=== PATIENT | female | born 1935 | race Caucasian/White ===

== ENCOUNTER 2023-12-06 21:07 | Emergency (ER) | payer OTHER, MEDICAID, SELFPAY ==
[2023-12-06 21:12] VITALS: BP 129/95
[2023-12-06 21:29] VITALS: BP 138/65
[2023-12-06 21:38] LABS: % Basophils 1.2 % (0-2); % Eosinophils 3.2 % (0-6); % Immature Granulocytes 0.7 % (0-0.5); % Lymphocytes 22.3 % (20.5-51.1); % Monocytes 11.1 % (1.7-9.3); % Neutrophils 61.5 % (42.2-75.2); Absolute Basophils 0.1 10^3/uL (0-0.2); Absolute Eosinophils 0.2 10^3/uL (0-0.7); Absolute Immature Granulocytes 0.1 10^3/uL (0-0.05); Absolute Lymphocytes 1.6 10^3/uL (1.2-3.4); Absolute Monocytes 0.8 10^3/uL (0.1-0.6); Absolute Neutrophils 4.5 10^3/uL (1.4-6.5); Hemoglobin 12.2 g/dL (12.0-16.0); Mean Corpuscular Hgb 29.4 pg (27.0-31.0); Mean Corpuscular Volume 89.2 fL (81.0-99.0); Mean Platelet Volume 8.7 fL (7.4-10.4); Nucleated Red Blood Cells % 0 %; Platelet Count 264 10^3/uL (130-400); Red Blood Cell Count 4.15 10^6/uL (4.20-5.40); Red Cell Dist. Width 13.5 % (11.5-14.5); White Blood Cell Count 7.3 10^3/uL (4.8-10.8)
[2023-12-06 21:52] LABS: ALT (SGPT) < 10 U/L (0-35); AST (SGOT) 15 U/L (14-36); Albumin 2.9 g/dl (3.5-5.0); Alkaline Phosphatase 52 U/L (38-126); Blood Urea Nitrogen 16 mg/dl (7-17); Calcium 7.9 mg/dl (8.4-10.2); Carbon Dioxide 28 mmol/L (22-30); Chloride 106 mmol/L (98-107); Estimated Creatinine Clearance 56 ml/min; Glucose 109 mg/dl (70-99); Potassium 3.4 mmol/L (3.5-5.1); Sodium 138 mmol/L (135-145); Total Bilirubin 0.4 mg/dl (0.2-1.3); Total Protein 5.4 g/dl (6.3-8.2); eGFR > 60.00
[2023-12-06 22:00] VITALS: BP 127/64
[2023-12-06 23:00] VITALS: BP 133/66
--- NOTE | 2023-12-06 23:01 | ED.GENMED ---
History of Present Illness
General
Chief Complaint: Abdominal Pain
Source: patient and ambulance crew
Exam Limitations: dementia
Time Seen by Provider: 12/06/23 21:11
Nursing documentation reviewed up to this point in time: agreed with
Travel History
Have you had any contact with someone who has COVID-19?: Unable to Answer
Do you have any symptoms of coronavirus? Fever > 100 degrees, chills, cough, shortness of breath, sore throat, loss of taste or smell, muscle aches, or headache?: Unable to Answer
History of Present Illness
History of Present Illness:
88-year-old female with a past medical history as documented who presents to the emergency department via EMS from [facility] for evaluation of abdominal pain. Patient is limited as a historian due to her dementia. Per EMS they were
called for abdominal pain that started this evening. Patient says that she has pain 'in my left abdomen.' She cannot really describe the pain. She cannot tell me when it started. She denies feeling nauseated. She denies any chest pain or back
pain. She denies feeling short of breath. I spoke with the nursing staff directly to obtain collateral history: Apparently she started complaining with abdominal pain tonight around 6:30 PM. She has a normal scheduled dose of oxycodone which I
gave her and did not seem to make much of a difference. Whenever trying to do her routine nighttime turn in bed she was having pain. They spoke with the physician on-call who recommended she be sent in for evaluation. They have not noticed any
nausea, vomiting or significant constipation/diarrhea. She has not any fevers recently. Her baseline mental status is oriented x 1-2, dependent for all ADLs and bedbound. She is a prior surgical history of hysterectomy.
Past History
Past History
ED Past Medical History: Asthma, NIDDM, Hypothyroidism and Other (Kidney stones, tachy rhythm)
ED Past Surgical History: Appendectomy, Gynecological (Hysterectomy) and Tonsilectomy
Social History
Tobacco: Non-smoker
Alcohol: None
Drug: None
Personal:
Living: assisted living ([facility])
Employment: Not employed
Family History
Family History: Hypertension and Other (cva)
Review of Systems
Review of Systems
Unable to obtain full review of systems at this time due to: dementia
All Other Systems: Not applicable
Phy Exam
Physical Exam
Physical Exam:
General: Sitting in bed, significant resting kyphosis, oriented x 1; she appears chronically ill but is in no acute distress
Head: Normocephalic, atraumatic
Eyes: Conjunctiva normal, sclera anicteric
Throat: Airway intact, handling secretions
Neck: Trachea midline, supple without meningismus
Lungs: Clear to auscultation bilaterally, no wheezing, rales, rhonchi appreciated
Heart: Regular rate and rhythm, no murmurs, gallops, or rubs
Abd: Soft, non distended, tender to palpation diffusely maximally in the left lower abdomen�no palpable abdominal masses
Skin: no rash, no wounds noted to the sacrum or back
Extremities: Warm and well-perfused
Scores
Heart Failure Risk
Heart Failure Risk Score: Not Applicable
Heart Score for Chest Pain Patients
STEMI patient?: Not applicable
Withdrawal Assessment of Alcohol
Withdrawal Assessment Completed?: Not applicable
Course
Orders/Labs/Results
Orders:
Orders
12/06/23 21:12
CT Abd/pelvis W Iv Cont Urgent
Comment:
Reason For Exam: LLQ abd pain and tenderness
Urinalysis Reflex To Culture Urgent
12/06/23 21:31
Complete Blood Count/With Diff Urgent
Comprehensive Metabolic Panel Urgent
12/07/23 00:39
MetroNIDAZOLE [Flagyl] 500 mg PO NOW STA
12/07/23 00:40
Ciprofloxacin HCl [Cipro] 500 mg PO ONCE ONE
Abnormal Lab Results
12/06/23
21:31
RBC 4.15 L 10^6/uL
(4.20-5.40)
Abs Immat Gran (auto) 0.1 H 10^3/uL
(0-0.05)
Absolute Monos (auto) 0.8 H 10^3/uL
(0.1-0.6)
Immature Gran % 0.7 H %
(0-0.5)
Monocytes % 11.1 H %
(1.7-9.3)
Potassium 3.4 L mmol/L
(3.5-5.1)
Creatinine 0.5 L mg/dL
(0.6-1.0)
Glucose 109 H mg/dl
(70-99)
Calcium 7.9 L mg/dl
(8.4-10.2)
Total Protein 5.4 L g/dl
(6.3-8.2)
Albumin 2.9 L g/dl
(3.5-5.0)
12/06/23 21:31
12/06/23 21:31
Vital Signs
Initial and Last Documented VS:
Initial Vital Signs
Temp Pulse Resp BP Pulse Ox
36.6 C 50 16 129/95 99
12/06/23 21:12 12/06/23 21:12 12/06/23 21:12 12/06/23 21:12 12/06/23 21:12
Last Documented Vital Signs
Temp Pulse Resp BP Pulse Ox
36.6 C 58 16 153/71 99
12/06/23 21:12 12/06/23 23:45 12/06/23 23:45 12/06/23 23:44 12/06/23 23:45
MDM/Problems Addressed
Differential Diagnosis Includes:
Diverticulitis, nephrolithiasis, UTI, bowel obstruction
MDM/Problems Addressed:
88-year-old female presents for evaluation of left-sided abdominal pain. Onset apparently this evening. Vital signs here within normal limits. Exam as above�she does have some tenderness most notably in the left lower quadrant. Plan to place an
IV check labs including a CBC and a CMP, urinalysis. Will check CT of the abdomen pelvis. Monitor closely reassess after the above.
Labs reviewed: CBC shows no leukocytosis or other clinically significant abnormalities. CMP within acceptable range. Awaiting results of CT.
CT abdomen pelvis shows some mild thickening of the proximal sigmoid colon with adjacent diverticulosis�concerning for early diverticulitis. This would fit with patient's clinical exam. On reassessment patient is resting comfortably in bed. She
does not appear to be uncomfortable. Her vital signs have all been stable here throughout her ED visit. Her lab work is reassuring. At this point there is no clear indication�she has early uncomplicated acute diverticulitis on CT with reassuring
vitals and lab work. She lives in a monitored setting where she will be watched closely and administered her medications as scheduled. I think it is reasonable to discharge on oral antibiotics to start. I placed a call to jail staff to
provide update they accepted patient for transfer back.
Chronic conditions affecting care:
Dementia
*Radiology
Radiology exam reviewed: radiology read reviewed
*Pulse Oximetry
Patient hypoxic: no
*Critical Care Note
Total Time (30-74mins, 75-104mins- exclusive of procedures): Not Applicable
Data Reviewed
Source: patient, records, ambulance crew and jail
Patient Management
Social determinants of health affecting care: Living situation
Discussion with other providers: snf staff (Discussed directly with nursing staff)
Escalation/DeEscalation of care consider admission/obs:
Considered admission for treatment but with patient appearing well, reassuring vitals and exam and disposition to a monitored setting where she will be administered medication by nursing ultimately decided for trial of oral antibiotics as an
outpatient
ED Attending Note
-
Portions of this chart may have been created with voice recognition software.� Occasional wrong word or��sound alike� substitutions may have occurred due to the inherent limitations of voice recognition software.
Discharge Plan
Departure
Patient Disposition: Home (Routine Discharge)
Date of Disposition: 12/07/23
Time of Disposition: 00:45
Patient with high blood pressure during this ER visit?: Yes
Discharge Problem:
Acute diverticulitis
Instructions: Diverticulitis (DC)
Prescriptions:
New
metronidazole 500 mg tablet
500 mg PO TID Qty: 21 0RF
ciprofloxacin HCl 500 mg tablet
500 mg PO BID Qty: 14 0RF
No Action
metoprolol succinate 25 mg Tablet Extended Release 24 Hr
25 mg PO DAILY
levothyroxine 112 mcg Tablet
112 mcg PO DAILY
latanoprost 0.005 % Drops
1 drp BOTH EYES HS
simethicone 80 mg Tablet,Chewable
80 mg PO BID
acetaminophen [Tylenol] 325 mg Tablet
650 mg PO Q6H PRN (Reason: mild pain/temp>100F)
buspirone 5 mg tablet
5 mg PO BID
sennosides [Senokot] 8.6 mg Tablet
8.6 mg PO HS
polyethylene glycol 3350 [Miralax] 17 gram Powder In Packet
17 g PO DAILY
guaifenesin 100 mg/5 mL Liquid
200 mg PO Q4H PRN (Reason: cough)
magnesium hydroxide [Milk of Magnesia] 400 mg/5 mL Suspension
30 ml PO HS PRN (Reason: if no bm x 2 days)
bisacodyl [Dulcolax (bisacodyl)] 10 mg Suppository
10 mg [place] DAILY PRN (Reason: if no bm x 3 days)
Fleet Enema 19-7 gram/118 mL Enema
118 ml CA DAILY PRN (Reason: if no bm x 4 days)
escitalopram oxalate 20 mg tablet
20 mg PO DAILY
naloxone [Narcan] 4 mg/actuation [place],Non-Aerosol
4 mg INTRANASAL Q3M PRN (Reason: opioid overdose)
ipratropium-albuterol 0.5 mg-3 mg(2.5 mg base)/3 mL Solution For Nebulization
3 ml INHALATION R Q6 PRN (Reason: sob/wheezing)
oxycodone 5 mg tablet
2.5 mg PO Q8H PRN (Reason: moderate pain)
Referrals:
Rory Garza MD [Family Provider] - Follow up in 2-3 days
Activity Restrictions/Additional Instructions:
Thank you for visiting the Emergency Department at [facility].
1. Please schedule a follow up appointment as directed. Call first thing tomorrow morning to make an appointment.
2. If indicated, please take your medications as instructed and indicated on discharge paperwork.
3. If any of your symptoms do not improve, or persist, or become more severe within 6-12 hours, please return to the emergency department for further care.
4. Please return to the emergency department if you develop a headache, neck pain/stiffness, fever greater than 100.4F, chest pain, shortness of breath, persistent nausea, vomiting, slurred speech, difficulty walking, numbness/tingling, weakness,
signs of infection or any other symptoms that are worrisome to you.
Please call [phone] if you have any questions.
Interventions
Interventions:
*Risk Screen - Suicide Last Done: 12/06/23 21:12
*General Assessment Last Done: 12/06/23 21:12
*Neglect/Abuse Screening Last Done: 12/06/23 21:12
*ED COVID-19 Vaccine History Last Done: 12/06/23 21:24
YA-Ngibma-Btnyeaudkw Assessment Last Done: 12/06/23 21:24
[2023-12-06 23:44] VITALS: BP 153/71
[2023-12-07] VITALS: BP 126/62
[2023-12-07] MEDS: CIPRO 500 MG PO (01:15)
[2023-12-07] MEDS: FLAGYL 500 MG PO (01:16)
== END 2023-12-07 01:53 | disposition home or self-care (01) ==
LOC: EMR 21:07
PROVIDERS: EMERGENCY PHYSICIAN Emergency Medicine; FAMILY PHYSICIAN Family Medicine
DX: K57.92 Diverticulitis of intestine, part unspecified, without perforation or abscess without bleeding (principal); J45.909 Unspecified asthma, uncomplicated; E11.9 Type 2 diabetes mellitus without complications; E03.9 Hypothyroidism, unspecified; F03.90 Unspecified dementia, unspecified severity, without behavioral disturbance, psychotic disturbance, mood disturbance, and anxiety; Z82.3 Family history of stroke; Z82.49 Family history of ischemic heart disease and other diseases of the circulatory system; Z87.442 Personal history of urinary calculi; Z90.49 Acquired absence of other specified parts of digestive tract; Z90.710 Acquired absence of both cervix and uterus
CPT/HCPCS: 99284; 74177; 80053; 85025; Q9967

== ENCOUNTER → 2024-02-02 10:38 | Outpatient (REF) | payer MEDICAID, SELFPAY ==
[2024-02-02 11:04] LABS: Hematocrit 38.5 % (37.0-47.0); Hemoglobin 12.1 g/dL (12.0-16.0); Mean Corp Hgb Conc. 31.4 g/dL (33.0-37.0); Mean Corpuscular Hgb 29.4 pg (27.0-31.0); Mean Corpuscular Volume 93.4 fL (81.0-99.0); Platelet Count 258 10^3/uL (130-400); Red Blood Cell Count 4.12 10^6/uL (4.20-5.40); Red Cell Dist. Width 13.5 % (11.5-14.5); White Blood Cell Count 9.4 10^3/uL (4.8-10.8)
[2024-02-02 11:44] LABS: Blood Urea Nitrogen 20 mg/dl (7-17); Calcium 9.4 mg/dl (8.4-10.2); Carbon Dioxide 28 mmol/L (22-30); Chloride 103 mmol/L (98-107); Glucose 88 mg/dl (70-99); Potassium 4.4 mmol/L (3.5-5.1); Sodium 136 mmol/L (135-145); eGFR > 60.00
== END ==
LOC: OLABWHC 10:38
PROVIDERS: ATTENDING PHYSICIAN Family Medicine
DX: I10 Essential (primary) hypertension (principal)
CPT/HCPCS: 80048; 85027

== ENCOUNTER 2024-05-03 18:17 | Emergency (ER) | payer OTHER, SELFPAY ==
[2024-05-03 18:42] VITALS: BP 125/73; BMI 30.6
--- NOTE | 2024-05-03 19:06 | ED.GENMED ---
History of Present Illness
General
Chief Complaint: Weakness
Source: jail
Exam Limitations: dementia
Time Seen by Provider: 05/03/24 18:45
History of Present Illness
History of Present Illness:
This is a 88 year old female that comes in by ambulance with c/o SOB. Called and spoke with Kiki at [facility]. States that the patient was calling for help and was c/o SOB. States that her pulse ox was 89-90% and then she came up to 95%.
States that she was lethargic and kept closing her eyes/ States that she had a hard time holding her head up. She just kept saying that she didn't feel well. States that this started last night but she seemed to have bounced back in the morning.
States that she was coughing slightly and did bring up some mucous. Denies any fever, chills, chest pain, abd pain, nausea, vomiting, diarrhea, headache, dizziness. Patient is incont of urine.
Past History
Past History
ED Past Medical History: Arrthythmia (SVT, ), Asthma, NIDDM, Hypothyroidism, Psychiatric (Anxiety, Depression) and Other (Kidney stones, tachy rhythm, back pain, dementia, neck pain, vertigo, PNA, Glaucoma, Macular degeneration, Autism, Fracture
arm, Kyphosis)
ED Past Surgical History: Appendectomy, Gynecological (Hysterectomy, tubal), Orthopedic (Knee surgery, Left foot surgery, Right total knee replacement) and Tonsilectomy
Social History
Tobacco: Non-smoker
Alcohol: None
Drug: None
Personal:
Living: assisted living ([facility])
Employment: Not employed
Family History
Family History: Hypertension and Other (cva)
Review of Systems
Review of Systems
Unable to obtain full review of systems at this time due to: dementia
Other source history: jail
All Other Systems: ROS reviewed and negative except as documented in HPI and ROS
Constitutional: Reports no symptoms; Denies fever or chills
EENT: Reports no symptoms
Respiratory: Reports cough and trouble breathing
Cardiac: Denies chest pain
ABD/GI: Reports no symptoms; Denies abdominal pain, nausea, vomiting or diarrhea
: Reports incontinence
Musculoskeletal: Reports no symptoms
Skin: Reports no symptoms
Neurological: Reports no symptoms; Denies dizzy or headache
Psychiatric: Reports no symptoms
Phy Exam
General Physical Exam
General Presentation: no apparent distress
General age: appears stated age
General Skin: warm and dry
General Habitus: debilitated and elderly
General Mental: usual mental status (Patient is awake and talking follows commands and helps with turning.)
General Hydration: appears well hydrated
ENT Exam
ENT Exam: TM's normal and pharynx normal
Eye Exam
Eye Exam: EOMI
Cardiovascular Exam
Cardiovascular Exam: regular rate/rhythm, no edema and normal peripheral pulses
Pulmonary Exam
Pulmonary Exam: lungs clear, no respiratory distress, no rales, chest non tender, no crackles, no rhonchi, no wheezing and no cough
Gastrointestinal Exam
Gastrointestinal Exam: normal bowel sounds, non tender, soft, no organomegaly, no pulsatile mass and non distended
Musculoskeletal Exam
Musculoskeletal Exam: full ROM and no edema
Skin Exam
Skin Exam: normal color, warm/dry, no petechia and redness (Redness on the corner of the left sided of the mouth and down to the chin appears chronic)
Psychiatric Exam
Psychiatric Exam: normal mood/affect
Course
Orders/Labs/Results
Orders:
Orders
05/03/24 19:05
Electrocardiogram (*1) Urgent
Reason for Study: Shortness of Breath
EKG- Treatment ONCE
CR Chest - 2 Views Urgent
Comment:
Reason For Exam: SOB
05/03/24 19:40
Complete Blood Count/With Diff Urgent
Comprehensive Metabolic Panel Urgent
Troponin I Urgent
Urinalysis Reflex To Culture Urgent
Date Specimen was Collected: 05/03/24
Time Specimen was Collected: 19:06
Urine Microscopic Reflex Cult Urgent
Urine Culture Urgent
BAILEY Source: U
Specimen Description:
Date Specimen was Collected: 05/03/24
Time Specimen was Collected: 19:06
05/03/24 20:52
Fosfomycin [Monurol] 3 gm PO ONCE ONE
Abnormal Lab Results
05/03/24
19:40
MCHC 32.6 L g/dL
(33.0-37.0)
Absolute Monos (auto) 0.8 H 10^3/uL
(0.1-0.6)
Lymphocytes % 15.7 L %
(20.5-51.1)
Monocytes % 9.7 H %
(1.7-9.3)
Carbon Dioxide 32 H mmol/L
(22-30)
BUN 21 H mg/dl
(7-17)
Glucose 108 H mg/dl
(70-99)
Ur Occult Blood Reflex Trace A
(Negative)
Leukocyte Esterase Rfl 2+ A
(Negative)
Urine RBC 3-6 A /HPF
(0-2)
Urine WBC (Reflex) 80-90 A /HPF
(0-5)
Urine Bacteria (Reflex) Many A
(Negative)
05/03/24 19:40
05/03/24 19:40
carbon dioxide slightly elevated. Glucose nonfasting. Urine positive for infection. Troponin <0.012
Vital Signs
Initial and Last Documented VS:
Initial Vital Signs
Temp Pulse Resp BP Pulse Ox
98.4 F 60 16 125/73 95
05/03/24 18:42 05/03/24 18:42 05/03/24 18:42 05/03/24 18:42 05/03/24 18:42
Last Documented Vital Signs
Temp Pulse Resp BP Pulse Ox
98.4 F 56 21 147/65 94
05/03/24 18:42 05/03/24 20:45 05/03/24 20:45 05/03/24 20:00 05/03/24 20:45
MDM/Problems Addressed
Differential Diagnosis Includes:
UTI, PNA
MDM/Problems Addressed:
This is a 88 year old female that is sent in from the [facility] with Lethargy and low Pulse ox. Told by Kiki that this started last night and she seemed to bounce back this morning. Then she started to yell for help and that she didn't feel
good
Will check labs, Urine and given IV fluids. Patient is very awake, smiling and cooperative.
back into see patient. Explained that she has a UTI. Will treat with antibiotic here and discharge patient back to the jail.
Chronic conditions affecting care:
Dementia, PNA
Acute Exacerbation and/or Progression of Chronic Illness:
NA
*Radiology
Radiology exam reviewed: radiology read reviewed (Chest-Probable trace left pleural effusion with mild left basilar atelectasis. )
*Pulse Oximetry
Patient hypoxic: no
*EKG
Interpreted by ED Provider?: Yes
Heart Rate: 55
Rate: tachycardiac
Rhythm: sinus
Connell: left axis deviation
Interval: normal interval
QRS Pattern: normal QRS
Ischemia: no ischemia
*Steam Cleaner Interpretation
Rate: bradycardiac
Heart Rate: 56
Rhythm: sinus
*Critical Care Note
Total Time (30-74mins, 75-104mins- exclusive of procedures): Not Applicable
ED Attending Note
-
Portions of this chart may have been created with voice recognition software.� Occasional wrong word or��sound alike� substitutions may have occurred due to the inherent limitations of voice recognition software.
Discharge Plan
Departure
Patient Disposition: Home (Routine Discharge)
Date of Disposition: 05/03/24
Time of Disposition: 20:58
Patient with high blood pressure during this ER visit?: Yes
Condition: Good
Covid-19: Not Applicable
Discharge Problem:
Urinary tract infection
Instructions: Urinary Tract Infection, Adult ED, BLOOD PRESSURE
Prescriptions:
No Action
metoprolol succinate 25 mg Tablet Extended Release 24 Hr
25 mg PO DAILY
levothyroxine 112 mcg Tablet
112 mcg PO DAILY
latanoprost 0.005 % Drops
1 drp BOTH EYES HS
simethicone 80 mg Tablet,Chewable
80 mg PO BID
acetaminophen [Tylenol] 325 mg Tablet
650 mg PO Q6H PRN (Reason: mild pain/temp>100F)
buspirone 5 mg tablet
5 mg PO BID
sennosides [Senokot] 8.6 mg Tablet
8.6 mg PO HS
polyethylene glycol 3350 [Miralax] 17 gram Powder In Packet
17 g PO DAILY
guaifenesin 100 mg/5 mL Liquid
200 mg PO Q4H PRN (Reason: cough)
magnesium hydroxide [Milk of Magnesia] 400 mg/5 mL Suspension
30 ml PO HS PRN (Reason: if no bm x 2 days)
bisacodyl [Dulcolax (bisacodyl)] 10 mg Suppository
10 mg [place] DAILY PRN (Reason: if no bm x 3 days)
Fleet Enema 19-7 gram/118 mL Enema
118 ml [place] DAILY PRN (Reason: if no bm x 4 days)
escitalopram oxalate 20 mg tablet
20 mg PO DAILY
naloxone [Narcan] 4 mg/actuation [place],Non-Aerosol
4 mg INTRANASAL Q3M PRN (Reason: opioid overdose)
ipratropium-albuterol 0.5 mg-3 mg(2.5 mg base)/3 mL Solution For Nebulization
3 ml INHALATION R Q6 PRN (Reason: sob/wheezing)
oxycodone 5 mg tablet
2.5 mg PO Q8H PRN (Reason: moderate pain)
metronidazole 500 mg tablet
500 mg PO TID Qty: 21 0RF
ciprofloxacin HCl 500 mg tablet
500 mg PO BID Qty: 14 0RF
Referrals:
Rory Garza MD [Family Provider] - Follow up in 2-3 days
Activity Restrictions/Additional Instructions:
As discussed, patient has a urinary tract infection. Patient was given a one time dose of Monurol to treat this infection. Her Blood work shows slight Dehydration. Please increase her water intake to 8-8oz glasses daily. Chest X-ray is negative for
any infection. Please have patient follow up with the family doctor for recheck in 2-3 days. IF YOU HAVE ANY OTHER CONCERNS PLEASE RETURN TO THE EMERGENCY ROOM.
Interventions
Interventions:
*General Assessment Last Done: 05/03/24 18:42
*Neglect/Abuse Screening Last Done: 05/03/24 18:42
ED- Fall Risk Assessment Last Done: 05/03/24 18:42
*ED COVID-19 Vaccine History Last Done: 05/03/24 18:42
ED- Cardiac Assessment Last Done: 05/03/24 19:42
ED- Neurological Assessment Last Done: 05/03/24 19:42
ED- Pulmonary Assessment Last Done: 05/03/24 19:42
Discharge Date and Time
Print Language: LIBERIAN
[2024-05-03 19:48] LABS: % Eosinophils 2.7 % (0-6); % Immature Granulocytes 0.5 % (0-0.5); % Lymphocytes 15.7 % (20.5-51.1); % Monocytes 9.7 % (1.7-9.3); % Neutrophils 70.4 % (42.2-75.2); Absolute Basophils 0.1 10^3/uL (0-0.2); Absolute Eosinophils 0.2 10^3/uL (0-0.7); Absolute Lymphocytes 1.2 10^3/uL (1.2-3.4); Absolute Monocytes 0.8 10^3/uL (0.1-0.6); Absolute Neutrophils 5.5 10^3/uL (1.4-6.5); Hematocrit 39.9 % (37.0-47.0); Mean Corp Hgb Conc. 32.6 g/dL (33.0-37.0); Mean Corpuscular Hgb 29.3 pg (27.0-31.0); Mean Corpuscular Volume 89.9 fL (81.0-99.0); Mean Platelet Volume 8.4 fL (7.4-10.4); Nucleated Red Blood Cells % 0 %; Platelet Count 240 10^3/uL (130-400); Red Blood Cell Count 4.44 10^6/uL (4.20-5.40); Red Cell Dist. Width 12.8 % (11.5-14.5); White Blood Cell Count 7.8 10^3/uL (4.8-10.8)
[2024-05-03 19:49] LABS: Urine Albumin Negative (Neg - Trace); Urine Bilirubin Negative (Negative); Urine Character Clear (Clear); Urine Color Yellow; Urine Glucose Negative (Negative); Urine Ketone Negative (Negative); Urine Leukocyte 2+ (Negative); Urine Nitrite Negative (Negative); Urine Occult Blood Trace (Negative); Urine Urobilinogen Negative (Neg - 1+)
[2024-05-03 19:56] LABS: Urine Squamous Cell 16-20 /LPF (Few)
[2024-05-03 19:58] LABS: Urine White Cell 80-90 /HPF (0-5)
[2024-05-03 19:59] LABS: Urine Bacteria Many (Negative); Urine Calcium Oxalate Crystals Present
[2024-05-03 20:00] VITALS: BP 147/65
[2024-05-03 20:07] LABS: ALT (SGPT) 11 U/L (0-35); AST (SGOT) 20 U/L (14-36); Albumin 4.3 g/dl (3.5-5.0); Alkaline Phosphatase 61 U/L (38-126); Blood Urea Nitrogen 21 mg/dl (7-17); Calcium 9.8 mg/dl (8.4-10.2); Carbon Dioxide 32 mmol/L (22-30); Chloride 100 mmol/L (98-107); Estimated Creatinine Clearance 52 ml/min; Glucose 108 mg/dl (70-99); Potassium 4.5 mmol/L (3.5-5.1); Sodium 137 mmol/L (135-145); Total Bilirubin 0.5 mg/dl (0.2-1.3); Total Protein 7.2 g/dl (6.3-8.2); eGFR > 60.00
[2024-05-03 20:12] LABS: Troponin I < 0.012 ng/ml
[2024-05-03 21:00] VITALS: BP 112/63
[2024-05-03] MEDS: MONUROL 3 GM PO (21:11)
[2024-05-03 22:00] VITALS: BP 98/60
== END 2024-05-03 23:05 | disposition home or self-care (01) ==
LOC: EMR 18:17
PROVIDERS: Clinical Nurse Specialist Family Health; EMERGENCY PHYSICIAN Emergency Medicine; FAMILY PHYSICIAN Family Medicine
DX: N39.0 Urinary tract infection, site not specified (principal); R06.02 Shortness of breath; I47.10 Supraventricular tachycardia, unspecified; J45.909 Unspecified asthma, uncomplicated; E11.9 Type 2 diabetes mellitus without complications; E03.9 Hypothyroidism, unspecified; F41.8 Other specified anxiety disorders; F84.0 Autistic disorder; H40.9 Unspecified glaucoma; H35.30 Unspecified macular degeneration; F03.90 Unspecified dementia, unspecified severity, without behavioral disturbance, psychotic disturbance, mood disturbance, and anxiety; Z82.3 Family history of stroke; Z82.49 Family history of ischemic heart disease and other diseases of the circulatory system; Z87.442 Personal history of urinary calculi; Z90.49 Acquired absence of other specified parts of digestive tract; Z90.710 Acquired absence of both cervix and uterus
CPT/HCPCS: 99283; 71046; 80053; 81003; 81015; 84484; 85025; 87086; 93005

== ENCOUNTER 2024-05-19 05:14 | Observation (INO) | payer OTHER, SELFPAY ==
[2024-05-18 19:35] VITALS: BP 128/74
[2024-05-18 19:37] VITALS: BP 128/74; BMI 29.1
[2024-05-18 20:00] VITALS: BP 109/72
[2024-05-18 20:03] LABS: % Basophils 0.8 % (0-2); % Eosinophils 2.6 % (0-6); % Immature Granulocytes 1.3 % (0-0.5); % Lymphocytes 14.9 % (20.5-51.1); % Neutrophils 69.4 % (42.2-75.2); Absolute Basophils 0.1 10^3/uL (0-0.2); Absolute Eosinophils 0.3 10^3/uL (0-0.7); Absolute Immature Granulocytes 0.1 10^3/uL (0-0.05); Absolute Lymphocytes 1.4 10^3/uL (1.2-3.4); Absolute Monocytes 1.1 10^3/uL (0.1-0.6); Absolute Neutrophils 6.6 10^3/uL (1.4-6.5); Hematocrit 38.6 % (37.0-47.0); Hemoglobin 12.5 g/dL (12.0-16.0); Mean Corp Hgb Conc. 32.4 g/dL (33.0-37.0); Mean Corpuscular Hgb 29.3 pg (27.0-31.0); Mean Corpuscular Volume 90.4 fL (81.0-99.0); Mean Platelet Volume 8.5 fL (7.4-10.4); Nucleated Red Blood Cells % 0 %; Platelet Count 317 10^3/uL (130-400); Red Blood Cell Count 4.27 10^6/uL (4.20-5.40); Red Cell Dist. Width 12.9 % (11.5-14.5); White Blood Cell Count 9.5 10^3/uL (4.8-10.8)
[2024-05-18 20:29] LABS: Blood Urea Nitrogen 32 mg/dl (7-17); Calcium 9.5 mg/dl (8.4-10.2); Carbon Dioxide 30 mmol/L (22-30); Chloride 101 mmol/L (98-107); Estimated Creatinine Clearance 48 ml/min; Glucose 108 mg/dl (70-99); Lipase 82 U/L (23-300); Sodium 138 mmol/L (135-145); eGFR > 60.00
--- NOTE | 2024-05-18 20:55 | ED.GENMED ---
History of Present Illness
General
Chief Complaint: Breathing Problem
Source: patient and family
Exam Limitations: none
Time Seen by Provider: 05/18/24 19:58
History of Present Illness
History of Present Illness:
88-year-old female who presents with pain in epigastric area. She also states it makes her feel short of breath. Patient states started earlier this afternoon. The daughter got notified around 6 PM. She states she has occasionally had a little
discomfort this area but today is much more severe. She states it makes it feel like she cannot breathe. She also had a little bit of nausea but that is not uncommon for her. No vomiting. No melena. No hematochezia.
Past History
Past History
ED Past Medical History: Arrthythmia (SVT, ), Asthma, NIDDM, Hypothyroidism, Psychiatric (Anxiety, Depression) and Other (Kidney stones, tachy rhythm, back pain, dementia, neck pain, vertigo, PNA, Glaucoma, Macular degeneration, Autism, Fracture
arm, Kyphosis)
ED Past Surgical History: Appendectomy, Gynecological (Hysterectomy, tubal), Orthopedic (Knee surgery, Left foot surgery, Right total knee replacement) and Tonsilectomy
Social History
Tobacco: Non-smoker
Alcohol: None
Drug: None
Personal:
Living: assisted living ([place])
Employment: Not employed
Family History
Family History: Hypertension and Other (cva)
Phy Exam
Physical Exam
Physical Exam:
CONSTITUTIONAL Patient alert and oriented to person, place and time. Well-appearing. Vital signs reviewed.
HEAD atraumatic, normocephalic.
EYES eyelids normal to inspection, Pupils equally round and reactive to light, Extraocular muscles intact, Conjunctiva normal, Sclera normal.
NECK normal range of motion, Trachea midline, no jugular venous distention.
RESPIRATORY CHEST No respiratory distress noted, Chest expansion equal, Bilateral breath sounds clear.
CARDIOVASCULAR regular rate and rhythm, Heart sounds normal.
ABDOMEN moderate to severe epigastric tenderness. Moderate diffuse tenderness. No distention.
BACK normal inspection, no obvious deformities
UPPER EXTREMITY range of motion normal, Motor strength normal, no cyanosis, no edema.
LOWER EXTREMITY range of motion normal, Motor strength normal, no cyanosis, no edema.
NEURO Speech normal, No focal motor deficits, Lana coma scale 15, Memory normal, Cranial Nerves intact to screening exam.
SKIN skin warm, dry, and normal in color.
PSYCHIATRIC patient oriented to person place and time, Normal affect.
Scores
Heart Failure Risk
Heart Failure Risk Score: Not Applicable
Course
Orders/Labs/Results
Orders:
Orders
05/18/24 19:46
Electrocardiogram (*1) Urgent
Reason for Study: Other
Other Reason for Exam: Respiratory Distress
Cardiac Monitoring- Treatment ONCE
CR Chest - 2 Views Urgent
Comment:
Reason For Exam: respiratory distress
Pulse Ox/cont/shift [RESP] Urgent
Quantity: 1
Special Instructions: continuous pulse ox
05/18/24 19:47
EKG- Treatment ONCE
05/18/24 19:49
Basic Metabolic Panel Urgent
Complete Blood Count/With Diff Urgent
Lipase Urgent
05/18/24 20:18
Add On- LAB Urgent
Tests Added?: lipase
05/18/24 21:25
LFT [[id number]] Urgent
Troponin I Urgent
05/18/24 22:06
CT Abd/pelvis W Iv Cont Urgent
Comment:
Reason For Exam: upper abd pain
05/19/24 01:12
Lactic Acid Urgent
Abnormal Lab Results
05/18/24
19:49
MCHC 32.4 L g/dL
(33.0-37.0)
Abs Immat Gran (auto) 0.1 H 10^3/uL
(0-0.05)
Absolute Neuts (auto) 6.6 H 10^3/uL
(1.4-6.5)
Absolute Monos (auto) 1.1 H 10^3/uL
(0.1-0.6)
Immature Gran % 1.3 H %
(0-0.5)
Lymphocytes % 14.9 L %
(20.5-51.1)
Monocytes % 11.0 H %
(1.7-9.3)
BUN 32 H mg/dl
(7-17)
Glucose 108 H mg/dl
(70-99)
05/18/24 19:49
05/18/24 19:49
Vital Signs
Initial and Last Documented VS:
Initial Vital Signs
Pulse Ox
95
05/18/24 19:34
Last Documented Vital Signs
Temp Pulse Resp BP Pulse Ox
98.4 F 80 27 95/62 92
05/18/24 19:37 05/19/24 01:45 05/19/24 01:45 05/19/24 01:00 05/19/24 01:45
MDM/Problems Addressed
MDM/Problems Addressed:
Acute abdominal pain, constipation, cholelithiasis
*Radiology
Radiology exam reviewed: preliminary read by ED provider (Question swirling of the mesentery on the right) and radiology read reviewed
*Pulse Oximetry
Patient hypoxic: no
*EKG
Interpreted by ED Provider?: Yes
Interpretation: abnormal
Rate: normal
Rhythm: sinus
Leighton: left axis deviation
Ischemia: non-specific ST changes
*Professional Nursing Tutor Interpretation
Rate: normal
Rhythm: sinus
*Critical Care Note
Total Time (30-74mins, 75-104mins- exclusive of procedures): Not Applicable
Data Reviewed
Source: patient and family
Patient Management
Discussion with other providers: Hospitalist
Escalation/DeEscalation of care consider admission/obs:
88-year-old female who presents with pain in the upper abdomen. On exam she is diffusely tender remains diffusely tender. Question whether this is just constipation versus related to something else. On my review of CT concern of swelling of the
mesentery. Case discussed with radiology who does agree with these no evidence of obstruction. Somewhat unlikely to have internal hernia as she has not had any major bowel surgery although she has had appendectomy and hysterectomy in the past.
Given her age and persistence of abdominal pain and tenderness, admitted for monitoring.
ED Attending Note
-
Portions of this chart may have been created with voice recognition software.� Occasional wrong word or��sound alike� substitutions may have occurred due to the inherent limitations of voice recognition software.
Discharge Plan
Departure
Patient Disposition: Admit
Date of Disposition: 05/19/24
Time of Disposition: 01:11
Admit to: Med/Surg
Presentation/result/management discussed w/ accepting MD/DO: Hospitalist
Discharge Problem:
Abdominal pain, Cholelithiasis
Prescriptions:
No Action
levothyroxine 112 mcg Tablet
112 mcg PO DAILY
latanoprost 0.005 % Drops
1 drp BOTH EYES HS
simethicone 80 mg Tablet,Chewable
80 mg PO BID
acetaminophen [Tylenol] 325 mg Tablet
650 mg PO Q6HPRN PRN (Reason: mild pain/temp>100F)
buspirone 5 mg tablet
5 mg PO BID
sennosides [Senokot] 8.6 mg Tablet
8.6 mg PO HS
polyethylene glycol 3350 [Miralax] 17 gram Powder In Packet
17 g PO DAILY
guaifenesin 100 mg/5 mL Liquid
200 mg PO Q4HPRN PRN (Reason: cough)
magnesium hydroxide [Milk of Magnesia] 400 mg/5 mL Suspension
30 ml PO HSPRN PRN (Reason: if no bm x 2 days)
bisacodyl [Dulcolax (bisacodyl)] 10 mg Suppository
10 mg ME DAILYPRN PRN (Reason: if no bm x 3 days)
Fleet Enema 19-7 gram/118 mL Enema
118 ml ME DAILYPRN PRN (Reason: if no bm x 4 days)
escitalopram oxalate 20 mg tablet
20 mg PO DAILY
naloxone [Narcan] 4 mg/actuation Benson,Non-Aerosol
4 mg INTRANASAL Q3MPRN PRN (Reason: opioid overdose)
ipratropium-albuterol 0.5 mg-3 mg(2.5 mg base)/3 mL Solution For Nebulization
3 ml INHALATION R Q6HPRN PRN (Reason: sob/wheezing)
oxycodone 5 mg tablet
2.5 mg PO Q8HPRN PRN (Reason: moderate pain)
ondansetron HCl 4 mg Tablet
4 mg PO Q8HPRN PRN (Reason: nausea/vomiting)
Referrals:
Rory Garza MD [Family Provider] -
Interventions
Interventions:
*Risk Screen - Suicide Last Done: 05/18/24 19:37
*General Assessment Last Done: 05/18/24 19:37
*Neglect/Abuse Screening Last Done: 05/18/24 19:37
ED- Fall Risk Assessment Last Done: 05/18/24 19:37
*ED COVID-19 Vaccine History Last Done: 05/18/24 19:37
ON-Ygskop-Ijbubrchzo Assessment Last Done: 05/18/24 23:35
ED- Cardiac Assessment Last Done: 05/18/24 23:35
ED- Pulmonary Assessment Last Done: 05/18/24 23:35
Discharge Date and Time
Print Language: LITHUANIAN
[2024-05-18 21:00] VITALS: BP 113/70
[2024-05-18 21:54] LABS: ALT (SGPT) 17 U/L (0-35); AST (SGOT) 20 U/L (14-36); Albumin 4.3 g/dl (3.5-5.0); Alkaline Phosphatase 89 U/L (38-126); Direct Bilirubin 0.2 mg/dl (0.0-0.4); Total Bilirubin 0.4 mg/dl (0.2-1.3); Total Protein 7.1 g/dl (6.3-8.2)
[2024-05-18 22:00] VITALS: BP 103/65
[2024-05-18 22:05] LABS: Troponin I < 0.012 ng/ml
[2024-05-18 23:00] VITALS: BP 104/63
[2024-05-19] VITALS (17 sets, daily range): BP systolic 90–135; BP diastolic 53–78; PULSE 71; O2SAT 96
[2024-05-19 01:34] LABS: Lactic Acid 0.9 mmol/L (0.7-2.0)
--- NOTE | 2024-05-19 04:39 | HPS.HSE ---
Family Physician
-
Family Physician: Rory Garza MD
Chief Complaint
-
Epigastric Pain
History of Present Illness
Patient is an 88y F with PMH significant for dementia, asthma and hypothyroidism who presents to ED complaining of SOB. [place] transfer record indicates dyspnea as reason for transfer. Patient has great difficulty explaining why she presented. ED
notes state epigastric discomfort that is chronic but was more severe and - perhaps - caused her to feel more acutely SOB. Evaluation in the ED has been largely unremarkable. Patient complains of epigastric discomfort and mild nausea. She has had
no emesis, no diarrhea, no fevers / chills. No chest pain / pressure or palpitations. She denies any cough.
She is resting comfortably at the time of my exam.
Medical History
Past Medical History
Past Medical History: Reports Other
Additional Past Medical History:
asthma, dementia, hypertension, diabetes, hypothyroidism, autism, anxiety/depression, kyphosis, kidney stones,
Past Surgical History: Reports Other
Additional Past Surgical History:
Appendectomy, Gynecological (Hysterectomy) and Tonsillectomy
Social History
Tobacco: Non-smoker
Alcohol: None
Drug: None
Family History
Family History: Not pertinent
Allergies / Home Medications
Allergies reflects when Allergies were last updated in [facility].
Home Medications with original date entered in [facility]
Allergy/Medication List:
Allergies
Allergy/AdvReac Type Severity Reaction Status Date / Time
cat dander Allergy Unknown Verified 05/18/24 19:36
dog dander Allergy Unknown Verified 05/18/24 19:36
egg Allergy does not Verified 05/18/24 19:36
settle
well w/
her abdomen
Penicillins Allergy Rash; Verified 05/18/24 19:36
tolerated
Cephalexin
03/2022
codeine [Codeine] AdvReac upset Verified 05/18/24 19:36
stomach
seasonal allergies Allergy nasal Uncoded 05/18/24 19:36
symptoms
Home Medications
levothyroxine 112 mcg tablet 112 mcg PO DAILY Thyroid 06/12/22
acetaminophen 325 mg tablet (Tylenol) 650 mg PO Q6HPRN PRN mild pain/temp>100F 10/18/22
latanoprost 0.005 % eye drops 1 drp BOTH EYES HS Eye condition 10/18/22
simethicone 80 mg chewable tablet 80 mg PO BID Gastrointestinal issue 10/18/22
bisacodyl 10 mg rectal suppository (Dulcolax (bisacodyl)) 10 mg AR DAILYPRN PRN if no bm x 3 days 11/02/23
buspirone 5 mg tablet 5 mg PO BID anxiety 11/02/23
escitalopram oxalate 20 mg tablet 20 mg PO DAILY Mental Health/Anxiety 11/02/23
guaifenesin 100 mg/5 mL oral liquid 200 mg PO Q4HPRN PRN cough 11/02/23
magnesium hydroxide 400 mg/5 mL oral suspension (Milk of Magnesia) 30 ml PO HSPRN PRN if no bm x 2 days 11/02/23
naloxone 4 mg/actuation nasal spray (Narcan) 4 mg intranasal Q3MPRN PRN opioid overdose 11/02/23
polyethylene glycol 3350 17 gram oral powder packet (Miralax) 17 g PO DAILY constipation 11/02/23
sennosides 8.6 mg tablet (Senokot) 8.6 mg PO HS constipation 11/02/23
sodium phosphates 19 gram-7 gram/118 mL enema (Fleet Enema) 118 ml AR DAILYPRN PRN if no bm x 4 days 11/02/23
ipratropium 0.5 mg-albuterol 3 mg (2.5 mg base)/3 mL nebulization soln 3 ml inhalation R Q6HPRN PRN sob/wheezing 12/06/23
oxycodone 5 mg tablet 2.5 mg PO Q8HPRN PRN moderate pain 12/06/23
ondansetron HCl 4 mg tablet 4 mg PO Q8HPRN PRN nausea/vomiting 05/18/24
Review of Systems
-
History Source: Patient
A 12 point ROS was completed and negative except as noted: Yes
Constitutional: Reports Fatigue; Denies Fever or Chills
Respiratory: Reports Trouble Breathing; Denies Cough
Cardiac: Denies Chest Pain or Palpitations
Abdomen/GI: Reports Abdominal Pain and Nausea; Denies Vomiting, Diarrhea, Constipated, Bloody Stools, Black Stools or Anorexia
: Denies Dysuria, Frequency or Flank Pain
Neurological: Denies Dizzy or Headache
Psych: Denies Depression or Anxiety
Physical Exam
Vital Signs
Vital Signs
Temp Pulse Resp BP Pulse Ox
98.4 F 67 20 102/70 93
05/18/24 19:37 05/19/24 04:15 05/19/24 04:15 05/19/24 04:00 05/19/24 02:00
Physical Exam
General: Other (88y F in no acute distress.)
HEENT: Moist mucous membranes and PERRLA
Respiratory: Other (Decreased at bases - otherwise clear.)
Cardiac: S1/S2 and Regular Rhythm; No Murmur
GI: Soft, Non Distended, Normal Bowel Sounds and Other (Pos epigastric tenderness. Normal bowel sounds.)
Musculoskeletal: No Clubbing, No Cyanosis, No Edema and Other (Chronic venous stasis skin changes.)
Neuro: Awake and Alert
Laboratory Results
-
05/18/24 19:49
05/18/24 19:49
Laboratory Results
Lactic Acid 0.9 mmol/L (0.7-2.0) 05/19/24 01:12
Total Bilirubin 0.4 mg/dl (0.2-1.3) 05/18/24 21:25
AST 20 U/L (14-36) 05/18/24 21:25
ALT 17 U/L (0-35) 05/18/24 21:25
Alkaline Phosphatase 89 U/L (38-126) 05/18/24 21:25
Troponin I < 0.012 ng/ml 05/18/24 21:25
Lipase 82 U/L (23-300) 05/18/24 19:49
Impression/Plan
-
A/P: Patient is an 88y F with PMH significant for hypothyroidism, dementia and hypertension who presents to ED for evaluation of epigastric discomfort and SOB.
Epigastric Pain
- Observe overnight for further evaluation and treatment.
- Mild nausea, no emesis. Imaging shows gallstones without cholecystitis or other significant findings.
- ? constipation due to chronic narcotics.
- ? GERD / gastritis.
- Begin PPI daily.
- Intensify bowel regimen.
- Follow for clinical changes.
- GI evaluation for any additional recommendations.
Anxiety / Depression
- Continue outpatient meds.
Hypothyroidism
- Continue T4 supplementation.
Chronic Pain Syndrome
- Unclear what her chronic pain originates from.
- Hold oxycodone for now.
- Intensify bowel regimen as noted above.
- PRN medications for acute pain.
DVT Prophylaxis: SCDs
Code Status: DNR
[2024-05-19 06:01] LABS: Hematocrit 35.6 % (37.0-47.0); Hemoglobin 11.4 g/dL (12.0-16.0); Mean Corpuscular Hgb 29.2 pg (27.0-31.0); Mean Corpuscular Volume 91.3 fL (81.0-99.0); Mean Platelet Volume 8.1 fL (7.4-10.4); Platelet Count 274 10^3/uL (130-400); White Blood Cell Count 7.8 10^3/uL (4.8-10.8)
[2024-05-19] MEDS: SYNTHROID 112 MCG PO (06:10)
[2024-05-19 06:18] LABS: ALT (SGPT) 15 U/L (0-35); AST (SGOT) 18 U/L (14-36); Albumin 3.7 g/dl (3.5-5.0); Alkaline Phosphatase 70 U/L (38-126); Blood Urea Nitrogen 28 mg/dl (7-17); Calcium 9.3 mg/dl (8.4-10.2); Carbon Dioxide 30 mmol/L (22-30); Chloride 105 mmol/L (98-107); Direct Bilirubin 0.2 mg/dl (0.0-0.4); Estimated Creatinine Clearance 56 ml/min; Glucose 109 mg/dl (70-99); Potassium 4.7 mmol/L (3.5-5.1); Sodium 139 mmol/L (135-145); Total Bilirubin 0.4 mg/dl (0.2-1.3); Total Protein 6.3 g/dl (6.3-8.2); eGFR > 60.00
[2024-05-19 06:25] LABS: Troponin I < 0.012 ng/ml
--- NOTE | 2024-05-19 08:30 | PTCARENOTE ---
Pt transferred to 409-2 at this time from the ED. Pt is AAOx2, confused on time, forgetful. Pt continues to report epigastric pain but states that it is better, rating pain 4/10 and does not want pain medication at this time. Denies any nausea.
SR on telemetry. See shift assessment for further detail. Oriented pt to , call rosas, fall risk, pressure ulcer prevention- pt verbalized understanding. Bed alarm in place for pt's safety. Call rosas within reach.
[2024-05-19] MEDS: FLUSH (NSS) 2 FLUSH IV (09:49)
[2024-05-19] MEDS: BUSPAR 5 MG PO ×2 (09:49→21:12)
[2024-05-19] MEDS: LEXAPRO 20 MG PO (09:49)
[2024-05-19] MEDS: NSS (PRESERVATIVE FREE) 10 ML IV (09:49)
[2024-05-19] MEDS: MIRALAX 17 GRAMS PO ×2 (09:49→21:14)
[2024-05-19] MEDS: PROTONIX IV 40 MG IV (09:49)
[2024-05-19] MEDS: COLACE 100 MG PO (09:49)
[2024-05-19] MEDS: TYLENOL 650 MG PO (09:54)
[2024-05-19 12:01] LABS: Troponin I < 0.012 ng/ml
--- NOTE | 2024-05-19 13:23 | CON.GI ---
Addendum entered and electronically signed by Cristal Barrera MD 05/19/24 21:11:
I saw and examined the patient.
The residents note was reviewed and I agree with the note.
Comment:
Pt is a 88 y/o with a hx of dementia, kyphosis who presented with SOB, also mentioned point tenderness in upper abdomen. Constipation by CT scan (report and images reviewed). Pt w/o vomiting
abd: soft, nontender. Point tenderness over right lower rib
impression:
?costochondritis
constipation:
monitor pain/heating pad
PPI
miralax, senna
Original Note:
Consultation
-
Date/Time Consultation Performed: 05/19/24
Reason for Consultation: epigastric pain, constipation
Medical History
Chief Complaint / HPI
Chief Complaint: epigastric pain, constipation
History of Present Illness:
88 year old female with past medical history of dementia, asthma, kyphosis, hypothyroidism; who presented to ED 05/18/24 for shortness of breath. EMS report indicates that they were called for respiratory distress, however on their arrival EMS
reports she was in no acute distress and only complaining of back pain. In the ED, she reported epigastric discomfort that was contributing to her SOB. She was also found to be constipated on CT imaging. GI was consulted for epigastric pain and
constipation.
At the time of evaluation, Nila feels wells and is enjoying her lunch. Today, she says she has a good appetite and denies nausea. However, her daughter at bedside reports she intermittently has poor appetite, early satiety, and nausea. Of note,
patient is a poor historian given her dementia. Her primary complaint is an 'uncomfortable' feeling and points to her epigastric region. She says it is not very painful, but it does make it hard to take in a full deep breath. She reports some
difficulty with swallowing which she attributes to her posture and chronic neck flexion. She denies painful swallowing or feeling that anything gets stuck. She denies reflux/regurgitation, vomiting, chest pain, palpitations, fevers/chills. She is
unsure when her last bowel movement was, and she cannot describe her regular pattern of bowel movements. Review of her retirement records indicate a bowel movement 05/18/24. At the retirement, she receives tylenol and oxycodone as needed for
pain, though it is unclear what frequency. Her daughter denies black/bloody stools, use of NSAIDs, weight loss.
Past Medical History
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
Past Surgical History: Appendectomy, Gynecological (hysterectomy 1974), Orthopedic (knee replacement) and Tonsilectomy
Social History
Tobacco: Non-Smoker
Alcohol: None
Drug: None
Living: Long Term
Family History
Family History: Other ([place] (father), [place] (mother), bladder cancer (sibling))
Allergies / Home Medications
Allergy/AdvReac Type Severity Reaction Status Date / Time
cat dander Allergy Unknown Verified 05/18/24 19:36
dog dander Allergy Unknown Verified 05/18/24 19:36
egg Allergy does not Verified 05/18/24 19:36
settle
well w/
her abdomen
Penicillins Allergy Rash; Verified 05/18/24 19:36
tolerated
Cephalexin
03/2022
codeine [Codeine] AdvReac upset Verified 05/18/24 19:36
stomach
seasonal allergies Allergy nasal Uncoded 05/18/24 19:36
symptoms
�Medication �Instructions �Recorded
levothyroxine 112 mcg tablet 112 mcg PO DAILY Thyroid 06/12/22
acetaminophen 325 mg tablet 650 mg PO Q6HPRN PRN mild 10/18/22
(Tylenol) pain/temp>100F
latanoprost 0.005 % eye drops 1 drp BOTH EYES HS Eye condition 10/18/22
simethicone 80 mg chewable tablet 80 mg PO BID Gastrointestinal issue 10/18/22
bisacodyl 10 mg rectal suppository 10 mg FL DAILYPRN PRN if no bm x 3 11/02/23
(Dulcolax (bisacodyl)) days
buspirone 5 mg tablet 5 mg PO BID anxiety 11/02/23
escitalopram oxalate 20 mg tablet 20 mg PO DAILY Mental 11/02/23
Health/Anxiety
guaifenesin 100 mg/5 mL oral liquid 200 mg PO Q4HPRN PRN cough 11/02/23
magnesium hydroxide 400 mg/5 mL 30 ml PO HSPRN PRN if no bm x 2 11/02/23
oral suspension (Milk of Magnesia) days
naloxone 4 mg/actuation nasal 4 mg intranasal Q3MPRN PRN opioid 11/02/23
spray (Narcan) overdose
polyethylene glycol 3350 17 gram 17 g PO DAILY constipation 11/02/23
oral powder packet (Miralax)
sennosides 8.6 mg tablet (Senokot) 8.6 mg PO HS constipation 11/02/23
sodium phosphates 19 gram-7 118 ml FL DAILYPRN PRN if no bm x 11/02/23
gram/118 mL enema (Fleet Enema) 4 days
ipratropium 0.5 mg-albuterol 3 mg 3 ml inhalation R Q6HPRN PRN 12/06/23
(2.5 mg base)/3 mL nebulization sob/wheezing
soln
oxycodone 5 mg tablet 2.5 mg PO Q8HPRN PRN moderate pain 12/06/23
ondansetron HCl 4 mg tablet 4 mg PO Q8HPRN PRN nausea/vomiting 05/18/24
Review of Systems
-
All other systems: A 12 pt ROS was Negative except as stated above in HPI
Vital Signs
Temp Pulse Resp BP Pulse Ox
98.8 F 68 18 111/62 96
05/19/24 12:20 05/19/24 12:20 05/19/24 12:20 05/19/24 12:20 05/19/24 12:20
Physical Exam
Exam
General: Sitting comfortably no bed, no acute distress. Hunched position with chin to chest. Pleasant demeanor, dementia.
Heart: Regular rate and rhythm.
Lungs: Nonlabored breathing. Clear and equal to auscultation bilaterally.
GI: Normal bowel sounds present. Abdomen soft, nondistended. No rebound, rigidity, guarding. Mild tenderness to palpation in epigastric region and mid abdomen. Tenderness to palpation over lower ribs medially on left; nontender on right.
Results
WBC 7.8 10^3/uL (4.8-10.8) 05/19/24 05:55
Hgb 11.4 g/dL (12.0-16.0) L 05/19/24 05:55
Hct 35.6 % (37.0-47.0) L 05/19/24 05:55
MCV 91.3 fL (81.0-99.0) 05/19/24 05:55
Plt Count 274 10^3/uL (130-400) 05/19/24 05:55
Absolute Neuts (auto) 6.6 10^3/uL (1.4-6.5) H 05/18/24 19:49
Sodium 139 mmol/L (135-145) 05/19/24 05:55
Potassium 4.7 mmol/L (3.5-5.1) 05/19/24 05:55
Chloride 105 mmol/L (98-107) 05/19/24 05:55
Carbon Dioxide 30 mmol/L (22-30) 05/19/24 05:55
BUN 28 mg/dl (7-17) H 05/19/24 05:55
Creatinine 0.6 mg/dL (0.6-1.0) 05/19/24 05:55
Calcium 9.3 mg/dl (8.4-10.2) 05/19/24 05:55
Total Bilirubin 0.4 mg/dl (0.2-1.3) 05/19/24 05:55
AST 18 U/L (14-36) 05/19/24 05:55
ALT 15 U/L (0-35) 05/19/24 05:55
Alkaline Phosphatase 70 U/L (38-126) 05/19/24 05:55
Lipase 82 U/L (23-300) 05/18/24 19:49
Diagnostic Image Results:
Abdomen/pelvis CT 05/18/24:
There is cholelithiasis with biliary sludge in the gallbladder.
There is no thickening of the gallbladder wall.
There is no pericholecystic edema
There is no biliary dilatation
There is large volume of feces throughout the colon and rectum suggesting constipation with possible fecal impaction
IMPRESSION:
1). Constipation with possible fecal impaction
2). Cholelithiasis
3). Multilevel degenerative disc disease with old 20% compression fracture of the superior endplate of L5
Prior GI Procedures:
EGD:
12/2013 ([place])- mild gastritis
Colonoscopy:
>15 years ago
Assessment / Plan
-
88 year old female with past medical history of dementia, asthma, kyphosis, hypothyroidism, who presented to ED via EMS from her retirement for shortness of breath and epigastric pain. GI consulted for epigastric pain and constipation.
Constipation:
- She has significant constipation seen on CT imaging, which may be contributing to her discomfort and intermittent decreased appetite. She has not had a bowel movement during this hospitalization and it is unclear when her last one was. She
received docusate sodium and miralax today.
- Recommend Dulcolax suppository, followed by a scheduled bowel regimen which should be continued after discharge to prevent reoccurrence.
Epigastric pain:
- Her pain seems to be more musculoskeletal in nature, as it is reproducible by palpation of left lower ribs on my physical exam. Likely nonGI etiology, such as costochondritis. This could also account for pain with full inspiration.
- Recommend trial of supportive measures such as heating pad or lidocaine patch and monitor for symptomatic improvement.
-
-
Thank you for consultation and allowing me to participate in the patient's care. Please call the sr. manager corporate communications GI physician during the after hours with any questions or concerns.
[2024-05-19 17:44] LABS: Troponin I < 0.012 ng/ml
[2024-05-19] MEDS: DULCOLAX 10 MG RECTAL (17:56)
[2024-05-19] MEDS: COLACE PO ×2 (21:12→22:47)
[2024-05-19] MEDS: COMPAZINE 5 MG IV (21:13)
[2024-05-19] MEDS: SENOKOT 17.2 MG PO (21:14)
[2024-05-19] MEDS: XALATAN OPHTHALMIC SOLUTION 1 DROP BOTH EYES (21:52)
[2024-05-19] MEDS: COLACE LIQUID TUBE ×2 (23:11)
[2024-05-20 03:40] VITALS: BP 113/77
[2024-05-20] MEDS: SYNTHROID 112 MCG PO (05:03)
[2024-05-20 06:00] VITALS: BMI 29.4
[2024-05-20 06:56] VITALS: BP 134/68
[2024-05-20] MEDS: BUSPAR 5 MG PO ×2 (09:22→20:29)
[2024-05-20] MEDS: MIRALAX 17 GRAMS PO ×2 (09:23→20:30)
[2024-05-20] MEDS: PROTONIX IV 40 MG IV (09:23)
[2024-05-20] MEDS: NSS (PRESERVATIVE FREE) 10 ML IV (09:23)
[2024-05-20] MEDS: LEXAPRO 20 MG PO (09:23)
[2024-05-20] MEDS: COLACE LIQUID 100 MG TUBE ×2 (09:30→20:41)
[2024-05-20 11:11] VITALS: BP 125/66
--- NOTE | 2024-05-20 11:24 | PTOTSP ---
ST Acute Care Evaluation
Pt presents with fairly functional oropharyngeal parameters with possible esophageal dysfunction as evidenced by pt's report of globus sensation with solids requiring liquid washes as well as epigastric pain.
Recommendations:
- Continue with soft bite sized solids, thin liquids, and meds crushed in puree.
- Aspiration precautions: HOB at 45 degrees ONLY for PO intake due to kyphosis; small bites/sips; alternate bites/sips.
- Consider GI consult.
- GOLF BALL TRIMMER will continue to follow to ensure pt is safely consuming the least restrictive diet consistencies without further issue.
--- NOTE | 2024-05-20 13:07 | W.PN.GI.CBS2 ---
Today's Communication / Plan
-
miralax
Assessment / Plan
-
88 year old female with past medical history of dementia, asthma, kyphosis, hypothyroidism, who presented to ED via EMS from her alf for shortness of breath and epigastric pain. GI consulted for epigastric pain and constipation.
Constipation:
improved with miralax would continue as outpatient
pain:
improved but I do think a component is musculoskeletal as she is very kyphotic which likely is giving her some issues with costochondritis/d/c
no further recs will sign off
Subjective
Subjective
Date of Service: May 20, 2024
Pt with 2 bms and abd d/c improved (confirmed with nurse)
Objective
Data Reviewed
Laboratory Data:
Laboratory Results
05/19/24 05:55
05/19/24 05:55
Laboratory Results
Total Bilirubin 0.4 mg/dl (0.2-1.3) 05/19/24 05:55
AST 18 U/L (14-36) 05/19/24 05:55
ALT 15 U/L (0-35) 05/19/24 05:55
Alkaline Phosphatase 70 U/L (38-126) 05/19/24 05:55
Lipase 82 U/L (23-300) 05/18/24 19:49
Vital Signs and I&O:
Vital Signs
Temp Pulse Resp BP Pulse Ox
98.5 F 64 26 125/66 95
05/20/24 11:11 05/20/24 11:11 05/20/24 11:11 05/20/24 11:11 05/20/24 11:11
I&O
05/19/24 05/20/24 05/21/24
06:59 06:59 06:59
Intake Total 360 / 360
Balance 360 / 360
Physical Exam
Physical Exam
GI: Soft and Non Tender
--- NOTE | 2024-05-20 13:52 | W.PN.HOSP.TC ---
Today's Communication/Plan
-
Continue with bowel regimen and PPI.
Assessment / Plan
Assessment / Plan
A/P: Patient is an 88y F with PMH significant for hypothyroidism, dementia and hypertension who presents to ED for evaluation of epigastric discomfort and SOB.
Epigastric Pain
- Mild nausea, no emesis. Imaging shows gallstones without cholecystitis , and constipation with possible fecal impaction
- ? constipation due to chronic narcotics.
- ? GERD / gastritis.
-Patient having daily bowel movement but still symptomatic With abdominal pain in epigastric area
- cw PPI daily.
- Intensify bowel regimen.
- Follow for clinical changes.
- GI evaluation and recs noted.
Anxiety / Depression
- Continue outpatient meds.
Hypothyroidism
- Continue T4 supplementation.
Chronic Pain Syndrome
- Unclear what her chronic pain originates from.
- Hold oxycodone for now.
- Intensify bowel regimen as noted above.
- PRN medications for acute pain.
DVT Prophylaxis: SCDs
Code Status: DNR
Anticipated Discharge: 24 - 48 hours
Subjective/Interval History
-
Date of Service: May 20, 2024
She is having bowel movements.
Still having some epigastric area discomfort but she feels it is more in the stomach. She tried solid diet and she felt more symptomatic so she is backing down to clear liquids.
Objective Data
-
Vital Signs:
Vital Signs
Temp Pulse Resp BP Pulse Ox
98.5 F 64 26 125/66 95
05/20/24 11:11 05/20/24 11:11 05/20/24 11:11 05/20/24 11:11 05/20/24 11:11
I&O
05/19/24 05/20/24 05/21/24
06:59 06:59 06:59
Intake Total 360 / 360
Balance 360 / 360
Review of Systems
-
Constitutional: Denies Fever
Respiratory: Denies Trouble Breathing
Cardiac: Denies Chest Pain
Neuro: Denies Dizzy
Physical Exam
-
General: No Apparent Distress
HEENT: Moist Mucous Membranes
Respiratory: Non Labored Respirations; Negative Accessory Resp Muscle Use
Cardiac: Regular Rhythm and S1/S2
GI: Soft, Nondistended, Normal Bowel Sounds and Tender (some in epigastric area -no rebound or guarding)
Neuro: AO x 3
Psych: Calm
[2024-05-20 19:48] VITALS: BP 126/75
[2024-05-20] MEDS: XALATAN OPHTHALMIC SOLUTION 1 DROP BOTH EYES (21:47)
[2024-05-20] MEDS: SENOKOT 17.2 MG PO (21:47)
[2024-05-20 23:14] VITALS: BP 113/73
[2024-05-21 03:40] VITALS: BP 130/78
[2024-05-21] MEDS: SYNTHROID 112 MCG PO (05:25)
[2024-05-21 06:00] VITALS: BMI 29.3
[2024-05-21 07:20] VITALS: BP 123/79
[2024-05-21 08:01] LABS: Hematocrit 35.4 % (37.0-47.0); Hemoglobin 11.7 g/dL (12.0-16.0); Mean Corp Hgb Conc. 33.1 g/dL (33.0-37.0); Mean Corpuscular Hgb 30.2 pg (27.0-31.0); Mean Corpuscular Volume 91.5 fL (81.0-99.0); Mean Platelet Volume 8.7 fL (7.4-10.4); Platelet Count 262 10^3/uL (130-400); Red Blood Cell Count 3.87 10^6/uL (4.20-5.40); White Blood Cell Count 8.4 10^3/uL (4.8-10.8)
[2024-05-21] MEDS: LEXAPRO 20 MG PO (09:12)
[2024-05-21] MEDS: PROTONIX IV 40 MG IV (09:12)
[2024-05-21] MEDS: BUSPAR 5 MG PO ×2 (09:12→20:43)
[2024-05-21] MEDS: NSS (PRESERVATIVE FREE) 10 ML IV (09:13)
[2024-05-21] MEDS: MIRALAX 17 GRAMS PO ×2 (09:13→20:44)
[2024-05-21 09:14] LABS: Blood Urea Nitrogen 16 mg/dl (7-17); Calcium 9.3 mg/dl (8.4-10.2); Carbon Dioxide 33 mmol/L (22-30); Chloride 102 mmol/L (98-107); Estimated Creatinine Clearance 48 ml/min; Glucose 97 mg/dl (70-99); Potassium 4.3 mmol/L (3.5-5.1); Sodium 138 mmol/L (135-145); eGFR > 60.00
[2024-05-21] MEDS: COLACE LIQUID 100 MG TUBE ×2 (09:19→20:43)
[2024-05-21 11:08] VITALS: BP 117/74
--- NOTE | 2024-05-21 12:45 | CM ---
Addendum entered by Daniela Simmons 05/21/24 15:37:
Call from [facility] nursing
Pt ambulates short distances with WW and 1 person assist
WC for long distances
Staff provide 1 person assist due to dementia for all personal care
Pt very pleasant without behaviors staff
DC order placed late afternoon
Per nursing, cannot accept back today
Will need discussion with admission tomorrow regarding auth
VM left for dtr with update and TT/Dr Coates
Original Note:
CM spoke with dtr on phone
Pt is a LTC resident at [facility] since January 2023
She is a MA bed-hold
Left VM for SNF nursing staff to obtain PLOF- awaiting call back
Pt is OBS- MUNIZ verbally reviewed over phone
Copy left bedside
Return SNF referral sent via [facility]
Will need to obtain PLOF and discussion with SNF admission if pt will require [place] [facility] prior auth for SNF return
Discharge Disposition- return to [facility] for LTC
--- NOTE | 2024-05-21 14:22 | W.PN.HOSP.TC ---
Today's Communication/Plan
-
DC
Assessment / Plan
Assessment / Plan
A/P: Patient is an 88y F with PMH significant for hypothyroidism, dementia and hypertension who presents to ED for evaluation of epigastric discomfort and SOB.
Epigastric Pain
- Mild nausea, no emesis. Imaging shows gallstones without cholecystitis , and constipation with possible fecal impaction
- ? constipation due to chronic narcotics.
- ? GERD / gastritis.
-Patient having daily bowel movement and now having improved pain and food tolereance
- cw PPI daily.
- CW bowel regimen.
- GI evaluation and recs noted.
Anxiety / Depression
- Continue outpatient meds.
Hypothyroidism
- Continue T4 supplementation.
Chronic Pain Syndrome
- Unclear what her chronic pain originates from.
- Hold oxycodone for now.
- CW bowel regimen as noted above.
- PRN medications for acute pain.
DVT Prophylaxis: SCDs
Code Status: DNR
Medically stable for DC
Anticipated Discharge: Today
Subjective/Interval History
-
Date of Service: May 21, 2024
patient is feeling improved and able to take more oral intake.
Improved abdominal discomfort.
No nausea vomiting.
No fever or chills.
Objective Data
-
Labs:
Laboratory Results
05/21/24 05/21/24
05:40 08:48
WBC 8.4
Hgb 11.7 L
Hct 35.4 L
Plt Count 262
Sodium Cancelled 138
Potassium Cancelled 4.3
Chloride Cancelled 102
Carbon Dioxide Cancelled 33 H
BUN Cancelled 16
Creatinine Cancelled 0.7
Glucose Cancelled 97
Calcium Cancelled 9.3
Vital Signs:
Vital Signs
Temp Pulse Resp BP Pulse Ox
98.6 F 77 20 117/74 96
05/21/24 11:08 05/21/24 11:08 05/21/24 11:08 05/21/24 11:08 05/21/24 11:08
I&O
05/20/24 05/21/24 05/22/24
06:59 06:59 06:59
Intake Total 360 / 360 360 / 360
Balance 360 / 360 360 / 360
Review of Systems
-
Respiratory: Denies Trouble Breathing
Cardiac: Denies Chest Pain or Palpitations
Neuro: Denies Dizzy
Physical Exam
-
General: No Apparent Distress
HEENT: Moist Mucous Membranes
Respiratory: Clear to Auscultation
Cardiac: Regular Rhythm and S1/S2
GI: Soft, Nondistended and Normal Bowel Sounds; Negative Nontender
Neuro: AO x 3
Data Reviewed
-
Labs: Labs Reviewed by me
--- NOTE | 2024-05-21 14:37 | W.DS.TRANS ---
DC Summary - Specimen Accessioner
-
Discharge Instructions:
Discharge Diagnosis/Procedures Abdominal discomfort suspect secondary to
constipation with fecal impaction
Diet Regular
Activity As tolerated
Driving Restrictions No driving
Bathing Restrictions None
Instructions:
Stand-Alone Forms:
Changes to Home Medications: Yes
Discharge Medications:
DC Medications w/original date entered in [employer]
levothyroxine 112 mcg tablet 112 mcg PO DAILY Thyroid 06/12/22
acetaminophen 325 mg tablet (Tylenol) 650 mg PO Q6HPRN PRN mild pain/temp>100F 10/18/22
latanoprost 0.005 % eye drops 1 drp BOTH EYES HS Eye condition 10/18/22
simethicone 80 mg chewable tablet 80 mg PO BID Gastrointestinal issue 10/18/22
bisacodyl 10 mg rectal suppository (Dulcolax (bisacodyl)) 10 mg OK DAILYPRN PRN if no bm x 3 days 11/02/23
buspirone 5 mg tablet 5 mg PO BID anxiety 11/02/23
escitalopram oxalate 20 mg tablet 20 mg PO DAILY Mental Health/Anxiety 11/02/23
guaifenesin 100 mg/5 mL oral liquid 200 mg PO Q4HPRN PRN cough 11/02/23
magnesium hydroxide 400 mg/5 mL oral suspension (Milk of Magnesia) 30 ml PO HSPRN PRN if no bm x 2 days 11/02/23
sennosides 8.6 mg tablet (Senokot) 8.6 mg PO HS constipation 11/02/23
ipratropium 0.5 mg-albuterol 3 mg (2.5 mg base)/3 mL nebulization soln 3 ml inhalation R Q6HPRN PRN sob/wheezing 12/06/23
docusate sodium 50 mg/5 mL oral liquid 100 mg (10 mL) feeding tube BID #1 mL 05/21/24
polyethylene glycol 3350 17 gram oral powder packet (HealthyLax) 17 g PO BID #1 ea 05/21/24
Home Medication Changes
New medication - Miralax, colace
Pending Results: No
[2024-05-21 15:08] VITALS: BP 110/74
--- NOTE | 2024-05-21 15:39 | CM ---
Addendum entered by Daniela Simmons 05/21/24 16:32:
Pt will require auth for SNF return for admissions
[facility]- [phone]
[facility]- [id number]
Original Note:
CM spoke with dtr on phone
Pt is a LTC resident at [facility] since January 2023
She is a MA bed-hold
Call with nursing at [facility]
Pt ambulates short distances with WW and 1 person assist
WC for longer distances
Staff provide 1 person assist for all personal care due to dementia
She follows direction and pleasant at baseline
Pt is OBS- MUNIZ verbally reviewed over phone
Copy left bedside
DC order placed late afternoon
Per nursing, cannot accept back until discussion with admission regarding need for auth for SNF return
Outreach to [facility] admissions
Discharge Disposition- return to [facility] for LTC
[2024-05-21] MEDS: SENOKOT 17.2 MG PO (21:13)
[2024-05-21] MEDS: XALATAN OPHTHALMIC SOLUTION 1 DROP BOTH EYES (21:13)
[2024-05-21] MEDS: COMPAZINE 5 MG IV (21:49)
[2024-05-21 23:33] VITALS: BP 115/73
[2024-05-22] MEDS: SYNTHROID 112 MCG PO (04:59)
[2024-05-22 05:05] VITALS: BMI 28.8
[2024-05-22 07:20] VITALS: BP 130/73
[2024-05-22] MEDS: BUSPAR 5 MG PO (08:51)
[2024-05-22] MEDS: COLACE LIQUID 100 MG TUBE (08:51)
[2024-05-22] MEDS: LEXAPRO 20 MG PO (08:51)
[2024-05-22] MEDS: MIRALAX 17 GRAMS PO (08:51)
[2024-05-22] MEDS: PROTONIX IV 40 MG IV (08:51)
[2024-05-22] MEDS: NSS (PRESERVATIVE FREE) 10 ML IV (08:52)
--- NOTE | 2024-05-22 09:08 | W.PN.HOSP.TC ---
Today's Communication/Plan
-
Discharge to nursing facility when bed available
Assessment / Plan
Assessment / Plan
A/P: Patient is an 88y F with PMH significant for hypothyroidism, dementia and hypertension who presents to ED for evaluation of epigastric discomfort and SOB.
Epigastric Pain
- Mild nausea, no emesis. Imaging shows gallstones without cholecystitis , and constipation with possible fecal impaction
- ? constipation due to chronic narcotics.
- ? GERD / gastritis.
- Appreciate GI input, patient has kyphosis, likely causing some costochondritis in addition to having constipation
- patient having daily bowel movement and now having improved pain and food tolerance
- cw PPI daily.
- CW bowel regimen.
Anxiety / Depression
- Continue outpatient meds.
Hypothyroidism
- Continue T4 supplementation.
Chronic Pain Syndrome
- Unclear what her chronic pain originates from.
- Hold oxycodone for now.
- CW bowel regimen as noted above.
- PRN medications for acute pain.
DVT Prophylaxis: SQ lovenox
Code Status: DNR
Medically stable for DC
Total time spent to see the patient on the floor, examine the patient, review data and lab results, discuss treatment plan with patient, nursing staff around 35 minutes.
Physical Exam
General: Frail, elderly, no acute distress
HEENT: Normocephalic, Atraumatic, EOMI, MMM
Respiratory: Clear to Auscultation bilaterally
Cardiac: Normal S1/S2, Regular Rate and Rhythm
GI: Soft, Nontender, Nondistended, Normal Bowel Sounds
Extremities: No Clubbing, Cyanosis, or Edema
Neuro: Nonfocal/Grossly Intact
Psych: Calm, Cooperative
Msk: Kyphosis noted
Anticipated Discharge: Today
Subjective/Interval History
-
Date of Service: May 22, 2024
Patient tolerated breakfast. Continues to have abdominal pain, improved. She is having bowel movements. No fever.
Objective Data
-
Vital Signs:
Vital Signs
Temp Pulse Resp BP Pulse Ox
97.9 F 63 20 130/73 93
05/22/24 07:20 05/22/24 07:20 05/22/24 07:20 05/22/24 07:20 05/22/24 07:20
I&O
05/21/24 05/22/24 05/23/24
06:59 06:59 06:59
Intake Total 360 / 360 1080 / 1080
Balance 360 / 360 1080 / 1080
--- NOTE | 2024-05-22 11:53 | CM ---
Addendum entered by Gina Che 05/22/24 15:01:
Updated PT notes obtained and insurance authorization obtained with [employer] reviewer for 05/22-05/26/2024; NRD 05/26/2024 to [phone]. Ambulance transport approved #[id number].
I spoke with [facility] who requests transfer between 5pm and 6pm today if possible.
Report: [phone]

Original Note:
CM attempted to obtain authorization for transfer to SNF at [facility]. Updated PT notes required for authorization. Araceli from PT will see when able today.
CM to follow for transfer to [facility] SNF once PT has seen patient today.
[2024-05-22] MEDS: COMPAZINE 5 MG IV (12:27)
[2024-05-22 14:14] VITALS: BP 130/70; PULSE 71; O2SAT 95
[2024-05-22 14:15] VITALS: BP 130/70; PULSE 69; O2SAT 92
[2024-05-22 15:10] VITALS: BP 117/80
--- NOTE | 2024-05-22 16:52 | CM ---
CM met with Nila and her family at bedside to review discharge plans. All in agreement with discharge to [facility] SNF via ambulance.
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
SNF authorization obtained with [employer] Chicas reviewer for 05/22-05/26/2024; NRD 05/26/2024 to [phone]. Ambulance transport approved #[id number].
Plan: Discharge to [facility] today at 5:30pm. Patient and family aware and agreeable.
Report: [phone]
--- NOTE | 2024-05-22 16:54 | W.DCSUMMARY ---
Discharge Summary
Discharge Data
Date of Admission: 05/19/24
Date of Discharge: 05/24/24
-
Pending Results: No
Hospital Course
Discharge diagnosis:
Epigastric abdominal pain with nausea
Constipation with possible fecal impaction
Kyphosis with probable costochondritis
Hypothyroidism
Chronic pain syndrome
Anxiety/depression
Dementia
Consults: GI
CT abdomen pelvis:
1). Constipation with possible fecal impaction
2). Cholelithiasis
3). Multilevel degenerative disc disease with old 20% compression fracture of the superior endplate of L5
Hospital course:
88-year-old female with a past medical history of dementia, kyphosis, hypothyroidism, and chronic pain syndrome on chronic opioids was admitted for epigastric abdominal pain with nausea. Patient was seen in conjunction with GI. CT of the abdomen
and pelvis shows constipation with possible fecal impaction. She does have a history of chronic pain syndrome on chronic opioids. Her opioids were discontinued. She was treated with an aggressive bowel regimen. Her abdominal pain improved, she
tolerated her diet.
Patient does have severe kyphosis. She chronically sits with her neck in a flexion position, chin tucked under. GI suspects that she may have a component of costochondritis.
Patient's epigastric abdominal pain did improve, but she does have residual mild pain. She also continues to have intermittent nausea, no vomiting. She is medically stable and cleared by GI for discharge. She needs to continue MiraLAX twice a
day, Senokot 8 mg at bedtime and milk of magnesia as needed. She can also continue simethicone 80 mg twice a day. She needs to follow-up with her primary care doctor in 1 week.
Disposition: Nursing facility
Discharge planning: Required 38 minutes
Discharge Plan
-
Patient Disposition: Intermediate/SNF
Discharge Diagnosis/Procedures: Abdominal discomfort suspect secondary to constipation with fecal impaction
Condition: Fair
Diet: Regular
Activity: As tolerated
Driving Restrictions: No driving
Bathing Restrictions: None
Referrals:
Rory Garza MD [Family Provider] -
Prescriptions:
New
docusate sodium 50 mg/5 mL Liquid
100 mg feeding tube BID Qty: 1 0RF
polyethylene glycol 3350 [HealthyLax] 17 gram Powder In Packet
17 g PO BID Qty: 1 0RF
Continued
levothyroxine 112 mcg Tablet
112 mcg PO DAILY
latanoprost 0.005 % Drops
1 drp BOTH EYES HS
simethicone 80 mg Tablet,Chewable
80 mg PO BID
acetaminophen [Tylenol] 325 mg Tablet
650 mg PO Q6HPRN PRN (Reason: mild pain/temp>100F)
buspirone 5 mg tablet
5 mg PO BID
sennosides [Senokot] 8.6 mg Tablet
8.6 mg PO HS
guaifenesin 100 mg/5 mL Liquid
200 mg PO Q4HPRN PRN (Reason: cough)
magnesium hydroxide [Milk of Magnesia] 400 mg/5 mL Suspension
30 ml PO HSPRN PRN (Reason: if no bm x 2 days)
bisacodyl [Dulcolax (bisacodyl)] 10 mg Suppository
10 mg ME DAILYPRN PRN (Reason: if no bm x 3 days)
escitalopram oxalate 20 mg tablet
20 mg PO DAILY
ipratropium-albuterol 0.5 mg-3 mg(2.5 mg base)/3 mL Solution For Nebulization
3 ml INHALATION R Q6HPRN PRN (Reason: sob/wheezing)
Discontinued
polyethylene glycol 3350 [Miralax] 17 gram Powder In Packet
17 g PO DAILY
Fleet Enema 19-7 gram/118 mL Enema
118 ml ME DAILYPRN PRN (Reason: if no bm x 4 days)
naloxone [Narcan] 4 mg/actuation [place],Non-Aerosol
4 mg INTRANASAL Q3MPRN PRN (Reason: opioid overdose)
oxycodone 5 mg tablet
2.5 mg PO Q8HPRN PRN (Reason: moderate pain)
ondansetron HCl 4 mg Tablet
4 mg PO Q8HPRN PRN (Reason: nausea/vomiting)
Discharge Orders:
Discharge Patient (As Directed); Ordered 05/21/24
Ordered By: Magdaleno Coates
Discharge Date and Time
Discharge Date/Time: 05/22/24 17:57
Print Language: UZBEK
== END 2024-05-22 17:57 ==
LOC: 4 EAST ACU 05:14
PROVIDERS: Emergency Medicine; Internal Medicine; ADMITTING PHYSICIAN Hospitalist; ATTENDING PHYSICIAN Family Medicine; CONSULT PHYSICIAN Internal Medicine; EMERGENCY PHYSICIAN Emergency Medicine; FAMILY PHYSICIAN Family Medicine
DX: R10.13 Epigastric pain (principal); K59.00 Constipation, unspecified; R11.0 Nausea; F32.A Depression, unspecified; R06.02 Shortness of breath; E03.9 Hypothyroidism, unspecified; F41.9 Anxiety disorder, unspecified; F84.0 Autistic disorder; R06.03 Acute respiratory distress; J45.909 Unspecified asthma, uncomplicated; H35.30 Unspecified macular degeneration; H40.9 Unspecified glaucoma; F03.90 Unspecified dementia, unspecified severity, without behavioral disturbance, psychotic disturbance, mood disturbance, and anxiety; I10 Essential (primary) hypertension; K80.20 Calculus of gallbladder without cholecystitis without obstruction; M51.36 Other intervertebral disc degeneration, lumbar region; M48.56XA Collapsed vertebra, not elsewhere classified, lumbar region, initial encounter for fracture; G89.4 Chronic pain syndrome; M40.209 Unspecified kyphosis, site unspecified; E11.9 Type 2 diabetes mellitus without complications; Z87.442 Personal history of urinary calculi; Z87.01 Personal history of pneumonia (recurrent); Z82.49 Family history of ischemic heart disease and other diseases of the circulatory system; Z82.3 Family history of stroke; Z90.49 Acquired absence of other specified parts of digestive tract; Z90.710 Acquired absence of both cervix and uterus; Z96.651 Presence of right artificial knee joint; Z79.890 Hormone replacement therapy; Z88.1 Allergy status to other antibiotic agents; Z88.5 Allergy status to narcotic agent; Z88.0 Allergy status to penicillin; Z66 Do not resuscitate
CPT/HCPCS: 71046; 74177; 80048; 80076; 83605; 83690; 84484; 85025; 85027; 87070; 92526; 92610; 93005; 97163; 97167; 97530; 97535; 99285; G0378; Q9967

== ENCOUNTER 2024-09-17 07:31 | Inpatient (IN) | payer OTHER, SELFPAY ==
[2024-09-17] VITALS (8 sets, daily range): BP systolic 102–122; BP diastolic 61–81; BMI 24.8
--- NOTE | 2024-09-17 05:33 | ED.GENMED ---
History of Present Illness
<Suki Ríos MD, Resident - Last Filed: 09/17/24 06:11>
General
Chief Complaint: Breathing Problem
Source: records and ambulance crew
Exam Limitations: clinical condition
Time Seen by Provider: 09/17/24 05:07
Nursing documentation reviewed up to this point in time: agreed with
Travel History
Have you traveled to any high risk areas for coronavirus over the past 14 days?: No
Have you had any contact with someone who has COVID-19?: No
Do you have any symptoms of coronavirus? Fever > 100 degrees, chills, cough, shortness of breath, sore throat, loss of taste or smell, muscle aches, or headache?: No
History of Present Illness
History of Present Illness:
89-year-old female with past medical history significant for CLARISSA, no CKD, cholelithiasis with no cholecystitis or obstruction, hypothyroidism, age-related macular degeneration, aspiration pneumonitis recurrent, type 2 diabetes mellitus, severe
kyphosis, gait abnormalities, essential hypertension, diverticulitis of the intestine, and dementia presents to the hospital from [facility] for hypoxia and moist cough. Patient started developing cough 3 days ago per assisted records, was
diagnosed with URI and placed on Zithromax, tonight patient complained of increasing shortness of breath and wet, productive cough is noted. Patient's oxygen saturations dropped down to 89% when [facility] decided to send the patient to emergency room
for complete evaluation. Patient is somnolent, easily arousable. Oriented to herself, place, person but not oriented to time.
Could not obtain further history from the patient due to her current medical condition/questionable confusion.
If applicable-neuro sx onset
Onset of symptoms known: No
Time pt last seen normal is known: No
Past History
<Suki Ríos MD, Resident - Last Filed: 09/17/24 06:11>
Past History
ED Past Medical History: Arrthythmia (SVT, ), Asthma, NIDDM, Hypothyroidism, Psychiatric (Anxiety, Depression) and Other (Kidney stones, tachy rhythm, back pain, dementia, neck pain, vertigo, PNA, Glaucoma, Macular degeneration, Autism, Fracture
arm, Kyphosis)
ED Past Surgical History: Appendectomy, Gynecological (Hysterectomy, tubal), Orthopedic (Knee surgery, Left foot surgery, Right total knee replacement) and Tonsilectomy
Social History
Tobacco: Non-smoker
Alcohol: None
Drug: None
Personal:
Living: assisted living ([facility])
Employment: Not employed
Family History
Family History: Hypertension and Other (cva)
Review of Systems
<Suki Ríos MD, Resident - Last Filed: 09/17/24 06:11>
Review of Systems
Allergies reviewed?: Yes
Unable to obtain full review of systems at this time due to: dementia
Other source history: assisted and transfer record
Phy Exam
<Suki Ríos MD, Resident - Last Filed: 09/17/24 06:11>
General Physical Exam
General Presentation: moderate distress
General Skin: warm
General Habitus: frail and other (Kyphotic)
General Mental: confused
General Hydration: appears well hydrated
ENT Exam
ENT Exam: EOMI and TM's normal
Eye Exam
Eye Exam: PERRL, EOMI and disc sharp
Cardiovascular Exam
Cardiovascular Exam: regular rate/rhythm, no edema, no gallop, no murmur and normal peripheral pulses
Heart Sounds: normal
Pulmonary Exam
Pulmonary Exam: generalized wheezing, respiratory distress and other (crackles present)
Gastrointestinal Exam
Gastrointestinal Exam: normal bowel sounds, non tender, soft, no organomegaly and non distended
Neurological Exam
Neurological Exam: alert, no motor deficits, speech normal and other (Oriented to person and place not time.)
Musculoskeletal Exam
Musculoskeletal Exam: other (Stasis dermatitis changes on bilateral legs, 1+ peripheral pulses-dorsalis pedis, trace pedal edema.)
Scores
<Suki Ríos MD, Resident - Last Filed: 09/17/24 06:11>
Heart Failure Risk
Heart Failure Risk Score: Not Applicable
History of Stroke or TIA: No
History of intubation for respiratory distress: No
Heart rate on ED arrival >/= 110: No
SaO2 <90% on arrival on room air: Yes
HR >/=110 during 3min walk test (or too ill to perform test): Yes
ECG has acute ischemic changes: No
Urea >/=12mmol/L (BUN 33.6mg/dL): No
Serum CO2>/=35mmol/L: No
Course
<Suki Ríos MD, Resident - Last Filed: 09/17/24 06:11>
Orders/Labs/Results
Orders:
Orders
09/17/24 05:12
Cardiac Monitoring- Treatment ONCE
CXR Port [CR Chest Portable - 1 View] Urgent
Comment:
Reason For Exam: sob, cough
Reason Study Needs to be Portable: Unable to Transport
09/17/24 05:14
CMP [Comprehensive Metabolic Panel] Urgent
Complete Blood Count/With Diff Urgent
Procalcitonin Urgent
Comment: ADD ON
09/17/24 05:38
Add On- LAB Urgent
Tests Added?: procalcitonin levels
Abnormal Lab Results
09/17/24
05:14
MCHC 32.4 L g/dL
(33.0-37.0)
Abs Immat Gran (auto) 0.1 H 10^3/uL
(0-0.05)
Absolute Monos (auto) 1.0 H 10^3/uL
(0.1-0.6)
Immature Gran % 0.8 H %
(0-0.5)
Lymphocytes % 16.8 L %
(20.5-51.1)
Monocytes % 11.3 H %
(1.7-9.3)
Carbon Dioxide 31 H mmol/L
(22-30)
Glucose 127 H mg/dl
(70-99)
09/17/24 05:14
09/17/24 05:14
Vital Signs
Initial and Last Documented VS:
Initial Vital Signs
Temp Pulse Resp BP Pulse Ox
98.3 F 91 16 122/77 89
09/17/24 05:04 09/17/24 05:04 09/17/24 05:04 09/17/24 05:04 09/17/24 05:04
Last Documented Vital Signs
Temp Pulse Resp BP Pulse Ox
98.3 F 91 16 122/77 89
09/17/24 05:04 09/17/24 05:04 09/17/24 05:04 09/17/24 05:04 09/17/24 05:04
<Ajay Mahoney, DO - Last Filed: 09/17/24 06:05>
Orders/Labs/Results
Orders:
Orders
09/17/24 05:12
Cardiac Monitoring- Treatment ONCE
CXR Port [CR Chest Portable - 1 View] Urgent
Comment:
Reason For Exam: sob, cough
Reason Study Needs to be Portable: Unable to Transport
09/17/24 05:14
CMP [Comprehensive Metabolic Panel] Urgent
Complete Blood Count/With Diff Urgent
Procalcitonin Urgent
Comment: ADD ON
09/17/24 05:38
Add On- LAB Urgent
Tests Added?: procalcitonin levels
Abnormal Lab Results
09/17/24
05:14
MCHC 32.4 L g/dL
(33.0-37.0)
Abs Immat Gran (auto) 0.1 H 10^3/uL
(0-0.05)
Absolute Monos (auto) 1.0 H 10^3/uL
(0.1-0.6)
Immature Gran % 0.8 H %
(0-0.5)
Lymphocytes % 16.8 L %
(20.5-51.1)
Monocytes % 11.3 H %
(1.7-9.3)
Carbon Dioxide 31 H mmol/L
(22-30)
Glucose 127 H mg/dl
(70-99)
09/17/24 05:14
09/17/24 05:14
Vital Signs
Initial and Last Documented VS:
Initial Vital Signs
Temp Pulse Resp BP Pulse Ox
98.3 F 91 16 122/77 89
09/17/24 05:04 09/17/24 05:04 09/17/24 05:04 09/17/24 05:04 09/17/24 05:04
Last Documented Vital Signs
Temp Pulse Resp BP Pulse Ox
98.3 F 91 16 122/77 89
09/17/24 05:04 09/17/24 05:04 09/17/24 05:04 09/17/24 05:04 09/17/24 05:04
<Suki Ríos MD, Resident - Last Filed: 09/17/24 06:11>
MDM/Problems Addressed
Differential Diagnosis Includes:
Community-acquired pneumonia, healthcare associated pneumonia, congestive heart failure, pulmonary edema
MDM/Problems Addressed:
Chest x-ray obtained-showed evidence of pneumonia.
O2 therapy given.
<Suki Ríos MD, Resident - Last Filed: 09/17/24 06:11>
*Critical Care Note
Total Time (30-74mins, 75-104mins- exclusive of procedures): Not Applicable
<Suki Ríos MD, Resident - Last Filed: 09/17/24 06:11>
Comment
Comment:
Highly likely, given age, comorbid conditions.
<Suki Ríos MD, Resident - Last Filed: 09/17/24 06:11>
Update Note
Update Note:
Chest x-ray showed evidence for pneumonia.
ED Attending Note
<Suki Ríos MD, Resident - Last Filed: 09/17/24 06:11>
-
Portions of this chart may have been created with voice recognition software.� Occasional wrong word or��sound alike� substitutions may have occurred due to the inherent limitations of voice recognition software.
<Ajay Mahoney DO - Last Filed: 09/17/24 06:05>
ED Attending Note
Patient seen and examined by attending physician: Yes
I performed a history and physical exam of patient and discussed management with resident, I reviewed resident's note and agree with documented findings and plan of care.: Yes
ED Attending Note:
Seen with resident examined independently 89-year-old female very kyphotic shortness of breath cough diagnosed with pneumonia started on some antibiotics now has low pulse ox, requiring oxygen drooling wonder if she aspirated will require admission
Discharge Plan
Departure
Patient Disposition: Admit
Date of Disposition: 09/17/24
Time of Disposition: 06:09
Admit to doctor: Mayi Morris MD
Presentation/result/management discussed w/ accepting MD/DO: Hospitalist
Patient with high blood pressure during this ER visit?: Yes
Discharge Problem:
Pneumonia
Prescriptions:
No Action
levothyroxine 112 mcg Tablet
112 mcg PO DAILY
latanoprost 0.005 % Drops
1 drp BOTH EYES HS
simethicone 80 mg Tablet,Chewable
80 mg PO BID
acetaminophen [Tylenol] 325 mg Tablet
650 mg PO Q6HPRN PRN (Reason: mild pain/temp>100F)
buspirone 5 mg tablet
5 mg PO BID
sennosides [Senokot] 8.6 mg Tablet
8.6 mg PO HS
guaifenesin 100 mg/5 mL Liquid
200 mg PO Q4HPRN PRN (Reason: cough)
magnesium hydroxide [Milk of Magnesia] 400 mg/5 mL Suspension
30 ml PO HSPRN PRN (Reason: if no bm x 2 days)
bisacodyl [Dulcolax (bisacodyl)] 10 mg Suppository
10 mg AR DAILYPRN PRN (Reason: if no bm x 3 days)
escitalopram oxalate 20 mg tablet
20 mg PO DAILY
ipratropium-albuterol 0.5 mg-3 mg(2.5 mg base)/3 mL Solution For Nebulization
3 ml INHALATION R Q6HPRN PRN (Reason: sob/wheezing)
docusate sodium 50 mg/5 mL Liquid
100 mg feeding tube BID Qty: 1 0RF
polyethylene glycol 3350 [HealthyLax] 17 gram Powder In Packet
17 g PO BID Qty: 1 0RF
Referrals:
Rory Garza MD [Family Provider] -
Interventions
Interventions:
*Risk Screen - Suicide Last Done: 09/17/24 05:04
*General Assessment Last Done: 09/17/24 05:04
*Neglect/Abuse Screening Last Done: 09/17/24 05:04
*ED COVID-19 Vaccine History Last Done: 09/17/24 05:04
Discharge Date and Time
Print Language: DIVEHI
[2024-09-17 05:34] LABS: ALT (SGPT) 11 U/L (0-35); AST (SGOT) 18 U/L (14-36); Alkaline Phosphatase 59 U/L (38-126); Blood Urea Nitrogen 17 mg/dl (7-17); Calcium 9.7 mg/dl (8.4-10.2); Carbon Dioxide 31 mmol/L (22-30); Chloride 103 mmol/L (98-107); Glucose 127 mg/dl (70-99); Potassium 4.8 mmol/L (3.5-5.1); Sodium 142 mmol/L (135-145); Total Bilirubin 0.6 mg/dl (0.2-1.3); Total Protein 7.1 g/dl (6.3-8.2); eGFR > 60.00
[2024-09-17 05:58] LABS: % Basophils 1.1 % (0-2); % Eosinophils 2.7 % (0-6); % Immature Granulocytes 0.8 % (0-0.5); % Lymphocytes 16.8 % (20.5-51.1); % Monocytes 11.3 % (1.7-9.3); % Neutrophils 67.3 % (42.2-75.2); Absolute Basophils 0.1 10^3/uL (0-0.2); Absolute Eosinophils 0.2 10^3/uL (0-0.7); Absolute Immature Granulocytes 0.1 10^3/uL (0-0.05); Absolute Lymphocytes 1.5 10^3/uL (1.2-3.4); Hematocrit 39.5 % (37.0-47.0); Hemoglobin 12.8 g/dL (12.0-16.0); Mean Corp Hgb Conc. 32.4 g/dL (33.0-37.0); Mean Corpuscular Hgb 29.3 pg (27.0-31.0); Mean Corpuscular Volume 90.4 fL (81.0-99.0); Mean Platelet Volume 8.6 fL (7.4-10.4); Nucleated Red Blood Cells % 0 %; Platelet Count 265 10^3/uL (130-400); Red Blood Cell Count 4.37 10^6/uL (4.20-5.40); Red Cell Dist. Width 12.8 % (11.5-14.5); White Blood Cell Count 8.9 10^3/uL (4.8-10.8)
[2024-09-17 06:12] LABS: Procalcitonin < 0.05 ng/ml (0.0-0.25)
--- NOTE | 2024-09-17 06:44 | HPS.HSE ---
Family Physician
-
Family Physician: Rory Garza MD
Chief Complaint
-
Cough and hypoxia
History of Present Illness
This is a 89-year-old female with history of dementia, hypothyroid, hypertension, CVA kyphoscoliosis with chronic elevated serum bicarb presenting from long-term with [facility] hypoxia.
At the long-term the patient apparently started having a cough on September 14. X-ray was done at that time which did not show any focal infiltrates. She was given symptomatic treatment with guaifenesin. Few days later the patient had worsening
cough. No reports of fevers or chills. No reports of hypoxia. She appears to be producing thick sputum. She was started on azithromycin yesterday. Today the patient complained to the nursing staff of ongoing cough and difficulty breathing.
Pulse oximetry measured and per ems record 82%. She was therefore sent to the emergency department. Patient in the ED was able to give very simple answers to questions and cannot provide much history. She is easily arousable and answers yes/no
questions. She does endorse coughing. She denies having any chest pain. She denies any vomiting. She denies any abdominal pain constipation, diarrhea. She denies fevers or chills. Per chart the patient has had history of aspiration in the past.
Initial vital signs showed that she was afebrile with a temp of 90.3 blood pressure of 122/77 and a respiratory of 16. Initial pulse ox was 89 on room air. She is satting 93 to 94% on 4 L nasal cannula. She no leukocytosis with a white count of
8.9, hemoglobin platelets were normal. Electrolytes only notable for a bicarb of 31 which is similar to prior. BUN/creatinine were within normal limits. Chest x-ray is rotated and difficult to interpret but there is no obvious consolidation.
Procalcitonin was negative.
Medical History
Past Medical History
Past Medical History: Reports Asthma, HTN and Hypothyroidism
Additional Past Medical History:
Chronic constipation
Past Surgical History: Reports Gynocological (Hysterectomy) and Other
Social History
Unable to obtain full social history at this time due to: Dementia
Tobacco: Non-smoker
Alcohol: None
Drug: None
Living: Halfway
Family History
Family History: Not pertinent
Allergies / Home Medications
Allergies reflects when Allergies were last updated in [facility].
Home Medications with original date entered in [facility]
Allergy/Medication List:
Allergies
Allergy/AdvReac Type Severity Reaction Status Date / Time
cat dander Allergy Unknown Verified 09/17/24 05:12
codeine [Codeine] Allergy upset Verified 09/17/24 05:12
stomach
dog dander Allergy Unknown Verified 09/17/24 05:12
egg Allergy does not Verified 09/17/24 05:12
settle
well w/
her abdomen
Penicillins Allergy Rash; Verified 09/17/24 05:12
tolerated
Cephalexin
03/2022
pollen extracts Allergy SEASONAL-nasal Verified 09/17/24 05:12
symptoms
Home Medications
levothyroxine 112 mcg tablet 100 mcg PO DAILY Thyroid 06/12/22
acetaminophen 325 mg tablet (Tylenol) 650 mg PO Q6HPRN PRN mild pain/temp>100F 10/18/22
latanoprost 0.005 % eye drops 1 drp BOTH EYES HS Eye condition 10/18/22
bisacodyl 10 mg rectal suppository (Dulcolax (bisacodyl)) 10 mg NM DAILYPRN PRN if no bm x 3 days 11/02/23
buspirone 5 mg tablet 5 mg PO BID anxiety 11/02/23
escitalopram oxalate 20 mg tablet 20 mg PO DAILY Mental Health/Anxiety 11/02/23
guaifenesin 100 mg/5 mL oral liquid 200 mg PO Q4HPRN PRN cough 11/02/23
magnesium hydroxide 400 mg/5 mL oral suspension (Milk of Magnesia) 30 ml PO HSPRN PRN if no bm x 2 days 11/02/23
sennosides 8.6 mg tablet (Senokot) 8.6 mg PO HS constipation 11/02/23
ipratropium 0.5 mg-albuterol 3 mg (2.5 mg base)/3 mL nebulization soln 3 ml inhalation R Q6HPRN PRN sob/wheezing 12/06/23
polyethylene glycol 3350 17 gram oral powder packet (HealthyLax) 17 g PO BID #1 ea 05/21/24
docusate sodium 50 mg/5 mL oral liquid 100 mg PO BID 09/17/24
guaifenesin 600 mg tablet, extended release 12 hr (Mucinex) 600 mg PO BID 09/17/24
Review of Systems
-
Unable to obtain full review of systems at this time due to: Dementia
Physical Exam
Vital Signs
Vital Signs
Temp Pulse Resp BP Pulse Ox
98.3 F 87 33 121/81 97
09/17/24 05:04 09/17/24 06:30 09/17/24 06:30 09/17/24 06:00 09/17/24 06:00
Physical Exam
General: No Apparent Distress
HEENT: NormoCephalic, Anicteric, Atraumatic, [place] Conjunctivae, Neck Nontender and Other (neck flexed and contracted, thick yellow oral secretion. )
Respiratory: Clear
Cardiac: S1/S2 and Regular Rhythm
Breast: Deferred by me
GI: Soft, Non Tender, Non Distended and Normal Bowel Sounds
Rectal: Deferred by Provider
Genito-urinary: Deferred by me
Musculoskeletal: No Clubbing, No Cyanosis and No Edema
Skin: Warm
Neuro: Awake (sleepy but easily aroused) and Nonfocal/grossly intact
Hematologic/Lymphatic: No Lymphadenopathy
Psych: Confused
Laboratory Results
-
09/17/24 05:14
09/17/24 05:14
Laboratory Results
Total Bilirubin 0.6 mg/dl (0.2-1.3) 09/17/24 05:14
AST 18 U/L (14-36) 09/17/24 05:14
ALT 11 U/L (0-35) 09/17/24 05:14
Alkaline Phosphatase 59 U/L (38-126) 09/17/24 05:14
Data Reviewed
-
Diagnostic Radiology: Image Personally Visualized and interpreted
Lab Data: Labs Reviewed by me
Old Records: Reviewed
Impression/Plan
-
IMPRESSION:
89 female with severe kyphosis, h/o n/v and aspiration presents with cough and hypoxia. She is arousable and answers appropriately but then goes back to sleep. She has known dementia and oriented to person and place. She does not appear
encephalopathic to me. Copious oral secretions. No wheezes or crackles on my exam. Xray does not show a clear infiltrate. She is afebrile, has no leukocytosis and procal is negative. She does have hypoxia requiring 4 L NC.
PLAN:
1. Hypoxia - Suspect ongoing bronchitis and possible aspiration rather than pneumonia given findings above. Unlikely PE given degree of oral secretions.
- admit to med/surg
- given h/o asthma will treat for bronchitis with IV ceftriaxone/azithromycin for now
- supplemental oxygen as needed, given body habitus not a candidate for BIPAP
- suctioning and pulmonary toilet
- nebs q6 hours for now and prn
- hold oral meds, speech and swallow eval before feeding.
2.Constipation
- can restart laxatives once tolerating po
DVT PPX - lovenox sq
Code Status - DNR
[2024-09-17] MEDS: ROCEPHIN 1000 MG IV (07:41)
[2024-09-17] MEDS: STERILE WATER FOR INJECTION 10 ML IV (07:42)
[2024-09-17] MEDS: ZITHROMAX INFUSION 250 IV (07:47)
[2024-09-17] MEDS: DUONEB 3 ML INH ×4 (08:31→17:49)
[2024-09-17] MEDS: D5/0.45%NACL 1000 IV (10:09)
[2024-09-17 10:28] LABS: NT-proBNP 342 pg/ml
--- NOTE | 2024-09-17 10:48 | PTCARENOTE ---
Received patient from ED via stretcher. Patient denies pain/SOB. Pox: 94% 2L NC. Pt AAOX1. Daughter states patient has dementia. Bed alarm on. Call rosas within reach. Patient remains NPO. Plan of care ongoing.
--- NOTE | 2024-09-17 12:21 | W.PN.UPDATE ---
Update Note
Progress Note Update
Speech eval
switch to unasyn for now - not convinced infectious source for hypoxia
probnp 342 - holding on lasix for now
GOC on going
wean o2
nebs for now
holding food/meds until speech clears
--- NOTE | 2024-09-17 13:27 | PTOTSP ---
ST Acute Care Evaluation
Pt currently presents with clinical signs of significant oropharyngeal dysphagia characterized by poor oral acceptance of PO intake, absent oral manipulation, absent swallow initiations, and poor secretion management.
Recommendations:
- STRICT NPO, including medications; no ARHP - not appropriate at this time.
- Aspiration precautions: HOB upright around 45 degrees to keep airway perpendicular with floor; oral care and suctioning q2 hours.
- Consider short-term alternative means of nutrition.
- RUG FRAME MOUNTER to f/u to re-assess pt's candidacy for PO diet initiation.
[2024-09-17] MEDS: UNASYN IV ×2 (14:07→19:42)
[2024-09-17 17:06] LABS: Glucose - Point of Care 106 mg/dl (70-99)
[2024-09-17] MEDS: LOVENOX 40 MG SC (17:29)
[2024-09-17] MEDS: XALATAN OPHTHALMIC SOLUTION 1 DROP BOTH EYES (21:30)
[2024-09-18 00:16] LABS: Glucose - Point of Care 109 mg/dl (70-99)
[2024-09-18] MEDS: UNASYN IV ×4 (01:36→19:21)
[2024-09-18 07:39] LABS: Hematocrit 37.5 % (37.0-47.0); Hemoglobin 11.4 g/dL (12.0-16.0); Mean Corp Hgb Conc. 30.4 g/dL (33.0-37.0); Mean Corpuscular Hgb 28.9 pg (27.0-31.0); Mean Corpuscular Volume 94.9 fL (81.0-99.0); Mean Platelet Volume 8.6 fL (7.4-10.4); Platelet Count 240 10^3/uL (130-400); Red Blood Cell Count 3.95 10^6/uL (4.20-5.40); Red Cell Dist. Width 12.9 % (11.5-14.5); White Blood Cell Count 6.8 10^3/uL (4.8-10.8)
[2024-09-18] MEDS: DUONEB 3 ML INH ×4 (07:47→19:46)
[2024-09-18 07:58] VITALS: BP 107/68
[2024-09-18 08:04] LABS: Glucose - Point of Care 112 mg/dl (70-99)
[2024-09-18 08:25] LABS: Blood Urea Nitrogen 17 mg/dl (7-17); Calcium 8.9 mg/dl (8.4-10.2); Carbon Dioxide 31 mmol/L (22-30); Chloride 103 mmol/L (98-107); Estimated Creatinine Clearance 38 ml/min; Glucose 109 mg/dl (70-99); Potassium 4.1 mmol/L (3.5-5.1); Sodium 143 mmol/L (135-145); eGFR > 60.00
[2024-09-18] MEDS: D5/0.45%NACL 1000 IV (09:31)
--- NOTE | 2024-09-18 10:20 | PTOTSP ---
Speech Language Pathology
Pt seen for dysphagia tx. Sleeping upon arrival, but easily roused. Head significantly forward with inability to raise. Attempted thin liquids and puree. Pt unable to actively suck from straw. Initially not aware that straw was in her mouth,
saying 'I don't have any liquid.' Verbally cued again, and attempted to suck from straw, but this was ineffective. Provided 3ccs of thin water via pipetted straw x2. Pt stated 'I got a little' while bolus still in oral cavity, causing anterior
spillage of large portion of bolus. Eventually able to swallow remainder of bolus. Attempted tsp of puree. Minimal accepted with anterior loss again. Required max cueing to initiate swallow. Suctioning completed post with small amount of
diffuse oral residue removed.
Pt is at a high risk for aspiration, but appears slightly improved from evaluation 09/17.
Recommend:
(1) Strict NPO
(2) Oral care 4x/day with suctioning as needed
(3) Non-oral meds
(4) Hold on Aspiration Risk Hydration Protocol (ARHP) given oral difficulties and need for cueing to initiate swallow at times
(5) W[employer]S ADMINISTRATOR to continue to follow
--- NOTE | 2024-09-18 14:06 | PTCARENOTE ---
Attempted to wean O2. Patient RA sat 86-87%. O2 2L NC resumed, sat 94-96%. Patient with moist frequent cough, mouth suctioned frequently with Yann[place]kauer. Patient instructed how to suction secretions from mouth. Patient demonstrated understanding.
[2024-09-18 15:20] VITALS: BP 125/69
--- NOTE | 2024-09-18 15:32 | W.PN.HOSP.TC ---
Today's Communication/Plan
-
AB
Hospice consult
Assessment / Plan
Assessment / Plan
89-year-old female presented with hypoxia
Neck flexed
CVS: rales bilaterally
Chest: CTA B/L
Abdomen: Soft, NT / Bowel sounds present
Extremities: No edema, normal pulses
# Acute hypoxic respiratory insufficiency
Neck posture 4 years like this
H/O Aspiration pneumonia in the past
She is on a chopped diet at [place]
Suspect ongoing aspiration and bronchitis with pneumonitis
Unasyn
Supplemental oxygen
Mucolytic's
Pulmonary toileting
Nebulizer treatments
Speech evaluation appreciated.
# Constipation-continue Senokot, MiraLAX, Colace
# Dementia with-continue buspirone, escitalopram
# Hypothyroidism-continue Synthroid
# Diet-controlled diabetes
# Glaucoma-continue latanoprost
# Cholelithiasis
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
# DVT prophylaxis-Lovenox
# DNR
D/W RN
D/W Daughter. Options discussed about tube feeds again night made her aware that I do not recommend that but option is available. Also discussed about hospice. Patient's daughter is interested in communicating with hospice to see if that something
which she would want for mom. I have placed a consult for hospice. Case management to facilitate.
Anticipated Discharge: Within 24 hours
Subjective/Interval History
-
Date of Service: September 18, 2024
Objective Data
-
Labs:
Laboratory Results
09/18/24
06:14
WBC 6.8
Hgb 11.4 L
Hct 37.5
Plt Count 240
Sodium 143
Potassium 4.1
Chloride 103
Carbon Dioxide 31 H
BUN 17
Creatinine 0.8
Glucose 109 H
Calcium 8.9
Vital Signs:
Vital Signs
Temp Pulse Resp BP Pulse Ox
98.1 F 83 16 107/68 96
09/18/24 07:58 09/18/24 11:48 09/18/24 11:48 09/18/24 07:58 09/18/24 11:48
I&O
09/17/24 09/18/24 09/19/24
06:59 06:59 06:59
Intake Total 300 / 300
Balance 300 / 300
[2024-09-18] MEDS: LOVENOX 40 MG SC (16:37)
[2024-09-18] MEDS: XALATAN OPHTHALMIC SOLUTION 1 DROP BOTH EYES (21:43)
[2024-09-18 23:00] VITALS: BP 104/67
[2024-09-18 23:50] LABS: Glucose - Point of Care 95 mg/dl (70-99)
[2024-09-19] MEDS: UNASYN IV ×4 (02:20→20:46)
[2024-09-19] MEDS: SYNTHROID PO (04:01)
[2024-09-19 06:04] LABS: Glucose - Point of Care 90 mg/dl (70-99)
[2024-09-19] MEDS: DUONEB 3 ML INH ×4 (07:25→19:36)
[2024-09-19 07:35] VITALS: BP 122/71
--- NOTE | 2024-09-19 11:40 | W.PN.HOSP.TC ---
Today's Communication/Plan
-
Hospice eval
NPO with IVF
Continue AB
Assessment / Plan
Assessment / Plan
89-year-old female presented with hypoxia
Neck flexed
CVS: Coarse BS bilaterally
Chest: CTA B/L
Abdomen: Soft, NT
# Acute hypoxic respiratory insufficiency
Neck posture has been like this for 4 years
H/O Aspiration pneumonia in the past
She is on a chopped diet at [place]
Suspect ongoing aspiration and bronchitis with pneumonitis
Continue Unasyn
Supplemental oxygen
Mucolytic's
Pulmonary toileting
Nebulizer treatments
Speech evaluation appreciated. NPO
# Constipation-continue Senokot, MiraLAX, Colace
# Dementia with-continue buspirone, escitalopram
# Hypothyroidism-continue Synthroid
# Diet-controlled diabetes
# Glaucoma-continue latanoprost
# Cholelithiasis
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
# DVT prophylaxis-Lovenox
# DNR
D/W RN
D/W Daughter. Options discussed about tube feeds and I made her aware that I do not recommend that but option is available. Also discussed about hospice. Patient's daughter is interested in communicating with hospice to see if that something
which she would want for mom. I have placed a consult for hospice. Case management to facilitate.
Anticipated Discharge: Within 24 hours
Subjective/Interval History
-
Date of Service: September 19, 2024
Objective Data
-
Vital Signs:
Vital Signs
Temp Pulse Resp BP Pulse Ox
98.6 F 83 18 122/71 98
09/19/24 07:35 09/19/24 07:35 09/19/24 07:35 09/19/24 07:35 09/19/24 07:35
I&O
09/18/24 09/19/24 09/20/24
06:59 06:59 06:59
Intake Total 300 / 300 840 / 840
Balance 300 / 300 840 / 840
[2024-09-19 12:07] LABS: Glucose - Point of Care 91 mg/dl (70-99)
--- NOTE | 2024-09-19 14:20 | PTOTSP ---
Speech Language Pathology
Pt seen for dysphagia tx. Daughter present at bedside. Pt more awake and interactive this date, conversing with MANAGER SERVICE DESK. Able to lift head more than yesterday. Reclined in bed to achieve midline neck position. Provided P.O. trials of thin liquid
via straw, puree, and regular solids. Slightly prolonged mastication of regular solids noted. No anterior loss noted. No overt signs of aspiration. Significant improvement in alertness, ability to hold up head, and swallow function.
Recommend:
(1) Initiate baseline diet of IDDSI Level 6 (Soft/bite-sized) and thin liquids
(2) Aspiration precautions: position so neck is midline, full supervision, feed only when alert
(3) Meds crushed in puree
(4) MANAGER SERVICE DESK to continue to follow
--- NOTE | 2024-09-19 14:52 | W.PN.UPDATE ---
Update Note
Progress Note Update
Patient passed swallow evaluation. IDDSI 6 with thin liquids. Family does not want hospice. I have started her on a diet. Continue antibiotics.
--- NOTE | 2024-09-19 14:54 | CM ---
Spoke with attending who stated that patient appropriate for hospice per swallow study yesterday. Met with patient's son and daughter who stated that patient is doing better today as she is more alert and responsive. They declined hospice at this
time. Spoke with ST who stated that her swallow study was at baseline today. Patient's family wants for her to return back to [facility] once she is medically stable.
At facility, per daughter, patient uses a rollator with an assist of one, w/c for transfers, 02 as needed, Minced diet. She does have a bed hold.
Plan: Case management will continue to follow and assist with discharge planning. Transfer back to [facility] when stable for discharge.
[2024-09-19 15:38] VITALS: BP 104/60
[2024-09-19] MEDS: LOVENOX 40 MG SC (17:19)
[2024-09-19 17:35] LABS: Glucose - Point of Care 139 mg/dl (70-99)
[2024-09-19] MEDS: XALATAN OPHTHALMIC SOLUTION 1 DROP BOTH EYES (21:33)
[2024-09-19] MEDS: D5/0.45%NACL 1000 IV (21:46)
[2024-09-19 23:37] VITALS: BP 106/60
[2024-09-20 00:06] LABS: Glucose - Point of Care 112 mg/dl (70-99)
[2024-09-20] MEDS: UNASYN IV ×4 (02:16→20:40)
[2024-09-20] MEDS: SYNTHROID 100 MCG PO (06:04)
[2024-09-20 06:23] LABS: Glucose - Point of Care 102 mg/dl (70-99)
[2024-09-20 06:39] LABS: Hematocrit 36.6 % (37.0-47.0); Hemoglobin 11.4 g/dL (12.0-16.0); Mean Corp Hgb Conc. 31.1 g/dL (33.0-37.0); Mean Corpuscular Hgb 29.6 pg (27.0-31.0); Mean Corpuscular Volume 95.1 fL (81.0-99.0); Mean Platelet Volume 8.7 fL (7.4-10.4); Platelet Count 231 10^3/uL (130-400); Red Blood Cell Count 3.85 10^6/uL (4.20-5.40); Red Cell Dist. Width 12.6 % (11.5-14.5); White Blood Cell Count 6.7 10^3/uL (4.8-10.8)
[2024-09-20 07:05] LABS: Blood Urea Nitrogen 13 mg/dl (7-17); Calcium 8.6 mg/dl (8.4-10.2); Carbon Dioxide 28 mmol/L (22-30); Chloride 105 mmol/L (98-107); Estimated Creatinine Clearance 50 ml/min; Glucose 109 mg/dl (70-99); Potassium 4.3 mmol/L (3.5-5.1); Sodium 142 mmol/L (135-145); eGFR > 60.00
[2024-09-20 07:20] VITALS: BP 112/68
[2024-09-20] MEDS: DUONEB 3 ML INH ×4 (07:32→19:40)
--- NOTE | 2024-09-20 09:35 | W.PN.HOSP.TC ---
Addendum entered and electronically signed by Ellie Batista MD 09/20/24 10:11:
CXR results - minimal edema
will stop fluids
patient with minimal PO intake so hold off on lasix at this time
monitor o2 needs
Original Note:
Today's Communication/Plan
-
IV Unasyn
follow up repeat speech eval
Assessment / Plan
Assessment / Plan
89-year-old female presented with hypoxia
Neck flexed - chronic
CVS: Coarse BS bilaterally
Chest: CTA B/L
Abdomen: Soft, NT
no LE swelling
AAO x 3
# Acute hypoxic respiratory insufficiency
Neck posture has been like this for 4 years
H/O Aspiration pneumonia in the past
She is on a chopped diet at [place]
Suspect ongoing aspiration and bronchitis with pneumonitis
Continue Unasyn - day 4
Supplemental oxygen
Mucolytic's
Pulmonary toileting
Nebulizer treatments
Speech evaluation appreciated. cleared for IDDSI level 6
# Constipation-continue Senokot, MiraLAX, Colace
# Dementia with-continue buspirone, escitalopram
# Hypothyroidism-continue Synthroid
# Diet-controlled diabetes
# Glaucoma-continue latanoprost
# Cholelithiasis
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
# DVT prophylaxis-Lovenox
# DNR
consult for hospice was placed, patient now seems at baseline and deferred for now
anticipate DC tomorrow after 5 days IV antibiotics, monitor PO intake.
Anticipated Discharge: 24 - 48 hours
Subjective/Interval History
-
Date of Service: September 20, 2024
had some pudding for breakfast
denies pain
breathing baseline
Objective Data
-
Labs:
Laboratory Results
09/20/24
06:12
WBC 6.7
Hgb 11.4 L
Hct 36.6 L
Plt Count 231
Sodium 142
Potassium 4.3
Chloride 105
Carbon Dioxide 28
BUN 13
Creatinine 0.6
Glucose 109 H
Calcium 8.6
Vital Signs:
Vital Signs
Temp Pulse Resp BP Pulse Ox
98.2 F 95 16 112/68 96
09/20/24 07:20 09/20/24 07:33 09/20/24 07:33 09/20/24 07:20 09/20/24 07:33
I&O
09/19/24 09/20/24 09/21/24
06:59 06:59 06:59
Intake Total 840 / 840
Balance 840 / 840
Review of Systems
-
History Source: Patient
All other systems: Reviewed and negative
Data Reviewed
-
Diagnostic Radiology: Report Reviewed by me
Labs: Labs Reviewed by me
[2024-09-20 12:45] LABS: Glucose - Point of Care 126 mg/dl (70-99)
[2024-09-20 14:18] VITALS: BP 105/67; PULSE 97; O2SAT 94
[2024-09-20 15:35] VITALS: BP 122/81
[2024-09-20 16:17] LABS: Glucose - Point of Care 152 mg/dl (70-99)
[2024-09-20] MEDS: LOVENOX 40 MG SC (17:26)
[2024-09-20] MEDS: XALATAN OPHTHALMIC SOLUTION 1 DROP BOTH EYES (22:20)
[2024-09-20 23:39] VITALS: BP 109/69
[2024-09-21] MEDS: UNASYN IV ×2 (02:20→07:48)
[2024-09-21] MEDS: SYNTHROID 100 MCG PO (05:28)
[2024-09-21 05:59] LABS: Glucose - Point of Care 99 mg/dl (70-99)
[2024-09-21 07:00] VITALS: BP 118/67
[2024-09-21 07:15] VITALS: BP 136/84
[2024-09-21] MEDS: DUONEB 3 ML INH ×3 (07:25→15:40)
[2024-09-21 07:34] LABS: Glucose - Point of Care 108 mg/dl (70-99)
--- NOTE | 2024-09-21 10:08 | W.PN.HOSP.TC ---
Today's Communication/Plan
-
OK for DC
Assessment / Plan
Assessment / Plan
89-year-old female presented with hypoxia
Neck flexed - chronic
CVS: Coarse BS bilaterally
Chest: CTA B/L
Abdomen: Soft, NT
no LE swelling
AAO x 3
# Acute hypoxic respiratory insufficiency
Neck posture has been like this for 4 years
H/O Aspiration pneumonia in the past
She is on a chopped diet at [place]
Suspect ongoing aspiration and bronchitis with pneumonitis
Continue Unasyn - day 5 - change to oral augmentin
Supplemental oxygen
Mucolytic's
Pulmonary toileting
Nebulizer treatments
Speech evaluation appreciated. cleared for IDDSI level 6
# Constipation-continue Senokot, MiraLAX, Colace
# Dementia with-continue buspirone, escitalopram
# Hypothyroidism-continue Synthroid
# Diet-controlled diabetes
# Glaucoma-continue latanoprost
# Cholelithiasis
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
# DVT prophylaxis-Lovenox
# DNR
consult for hospice was placed, patient now seems at baseline and deferred for now
OK for DC today .
Anticipated Discharge: Today
Subjective/Interval History
-
Date of Service: September 21, 2024
feeling better
ready for discharge
ate a little bit of breakfast, ate yesterday
Objective Data
-
Vital Signs:
Vital Signs
Temp Pulse Resp BP Pulse Ox
98.6 F 86 18 136/84 92
09/21/24 07:15 09/21/24 07:27 09/21/24 07:27 09/21/24 07:15 09/21/24 07:27
I&O
09/20/24 09/21/24 09/22/24
06:59 06:59 06:59
Intake Total 240 / 240
Balance 240 / 240
Review of Systems
-
History Source: Patient
All other systems: Reviewed and negative
Physical Exam
-
General: No Apparent Distress
HEENT: Moist Mucous Membranes
Respiratory: Clear to Auscultation
Cardiac: Regular Rhythm and S1/S2
GI: Soft, Nondistended and Normal Bowel Sounds; Negative Nontender
Neuro: AO x 3
Psych: Calm
Data Reviewed
-
Diagnostic Radiology: Report Reviewed by me
Labs: Labs Reviewed by me
--- NOTE | 2024-09-21 10:21 | W.DS.TRANS ---
DC Summary - [employer] Information [employer]
-
Discharge Instructions:
Discharge Diagnosis/Procedures aspiration pneumonia
Additional Diets IDSSI6 soft and bite sized/ (2) Aspiration
precautions: position so neck is midline, full
supervision, feed only when alert
(3) Meds crushed in puree
Activity As tolerated
Driving Restrictions No driving
Bathing Restrictions None
Other Services PT,ST,OT
Instructions:
Stand-Alone Forms:
Changes to Home Medications: Yes
Discharge Medications:
DC Medications w/original date entered in [employer]
acetaminophen 325 mg tablet (Tylenol) 650 mg PO Q6HPRN PRN mild pain/temp>100F 10/18/22
latanoprost 0.005 % eye drops 1 drp BOTH EYES HS Eye condition 10/18/22
bisacodyl 10 mg rectal suppository (Dulcolax (bisacodyl)) 10 mg OH DAILYPRN PRN if no bm x 3 days 11/02/23
buspirone 5 mg tablet 5 mg PO BID anxiety 11/02/23
escitalopram oxalate 20 mg tablet 20 mg PO DAILY Mental Health/Anxiety 11/02/23
guaifenesin 100 mg/5 mL oral liquid 200 mg PO Q4HPRN PRN cough 11/02/23
magnesium hydroxide 400 mg/5 mL oral suspension (Milk of Magnesia) 30 ml PO HSPRN PRN if no bm x 2 days 11/02/23
sennosides 8.6 mg tablet (Senokot) 8.6 mg PO HS constipation 11/02/23
ipratropium 0.5 mg-albuterol 3 mg (2.5 mg base)/3 mL nebulization soln 3 ml inhalation R Q6HPRN PRN sob/wheezing 12/06/23
polyethylene glycol 3350 17 gram oral powder packet (HealthyLax) 17 g PO BID #1 ea 05/21/24
docusate sodium 50 mg/5 mL oral liquid 100 mg PO BID Constipation 09/17/24
guaifenesin 600 mg tablet, extended release 12 hr (Mucinex) 600 mg PO BID Cough 09/17/24
levothyroxine 100 mcg tablet 100 mcg PO DAILY Thyroid 09/18/24
amoxicillin 250 mg-potassium clavulanate 62.5 mg/5 mL oral suspension 10 ml PO TID #75 mL 09/21/24
Home Medication Changes
addition 2 more days Augmentin
Pending Results: No
--- NOTE | 2024-09-21 13:38 | W.DCSUMMARY ---
Discharge Summary
Discharge Data
Date of Admission: 09/17/24
Date of Discharge: 09/21/24
-
Pending Results: No
Hospital Course
Discharging Physician : Dr. Ellie Batista
Disposition : Home
Primary care physician : Dr. Rory Garza
Principal Discharge diagnosis : Aspiration Pneumonia
Hospital Course :
Ms. Nila Pratt is a 89 yo woman with hx dementia, hypothyroidism, HTN< CVA, kyphoscoliosis with chronic neck flexion presents to the ER with hypoxia.
Triage VS without fever, BP 122/77, SpO2 89% RA. WBC 8.9, normal renal function. CXR with no obvious consolidation. She was admitted to medicine and started on IV antibiotics for concern for aspiration pneumonia. Initial ST eval recommended NPO
but patient then improved and was re-advanced to home diet. She tolerated well. She was weaned off oxygen prior to discharge. She is discharged with liquid Augmentin to complete a 7 day course.
GOC discussion had with daughter. Initially hospice considered when patient failed her swallow evaluation. Given improvement, family and patient would like to discharge back to [facility] and reconsider hospice if clinical decline or multiple
readmissions were to occur.
Time spent on discharge was 35 minutes.
Important imaging findings :
Procedure findings :
Discharge Plan
-
Patient Disposition: [facility]NF
Discharge Diagnosis/Procedures: aspiration pneumonia
Additional Diets: IDSSI6 soft and bite sized/ (2) Aspiration precautions: position so neck is midline, full supervision, feed only when alert
(3) Meds crushed in puree
Activity: As tolerated
Driving Restrictions: No driving
Bathing Restrictions: None
Other Services: PT, OT and ST
Referrals:
Rory Garza MD [Family Provider] - in less than 1 week
Additional Discharge Medication Instructions: You have two more days of Augmentin to complete antibiotic course
Prescriptions:
New
amoxicillin-pot clavulanate 250-62.5 mg/5 mL Suspension For Reconstitution
10 ml PO TID Qty: 75 0RF
Continued
latanoprost 0.005 % Drops
1 drp BOTH EYES HS
acetaminophen [Tylenol] 325 mg Tablet
650 mg PO Q6HPRN PRN (Reason: mild pain/temp>100F)
buspirone 5 mg tablet
5 mg PO BID
sennosides [Senokot] 8.6 mg Tablet
8.6 mg PO HS
guaifenesin 100 mg/5 mL Liquid
200 mg PO Q4HPRN PRN (Reason: cough)
magnesium hydroxide [Milk of Magnesia] 400 mg/5 mL Suspension
30 ml PO HSPRN PRN (Reason: if no bm x 2 days)
bisacodyl [Dulcolax (bisacodyl)] 10 mg Suppository
10 mg MA DAILYPRN PRN (Reason: if no bm x 3 days)
escitalopram oxalate 20 mg tablet
20 mg PO DAILY
ipratropium-albuterol 0.5 mg-3 mg(2.5 mg base)/3 mL Solution For Nebulization
3 ml INHALATION R Q6HPRN PRN (Reason: sob/wheezing)
polyethylene glycol 3350 [HealthyLax] 17 gram Powder In Packet
17 g PO BID Qty: 1 0RF
guaifenesin [Mucinex] 600 mg Tablet Extended Release 12hr
600 mg PO BID
docusate sodium 50 mg/5 mL liquid
100 mg PO BID
levothyroxine 100 mcg tablet
100 mcg PO DAILY
Discharge Orders:
Discharge Patient (As Directed); Ordered 09/21/24
Ordered By: Ellie Batista
Discharge Date and Time
Print Language: URDU
[2024-09-21 15:15] VITALS: BP 134/79
--- NOTE | 2024-09-21 15:22 | CM ---
Received notification that patient is medically cleared for discharge. Spoke with Falguni in admissions who stated that patient can come back today, # for report [phone] # .
Will complete medical necessity and transfer sheet.
IMM reviewed with patient's daughter. She is agreeable to discharge.
Plan: Case management will continue to follow and assist with discharge planning. Back to [facility].
[2024-09-21] MEDS: AUGMENTIN 250 MG/5 ML 500 MG PO (17:23)
[2024-09-21] MEDS: LOVENOX SC ×2 (17:23→17:34)
== END 2024-09-21 18:42 | DRG 179 ==
LOC: 3 WEST ACU 07:31
PROVIDERS: Hospitalist; Internal Medicine; ADMITTING PHYSICIAN Internal Medicine; ATTENDING PHYSICIAN Student in an Organized Health Care Education/Training Program; EMERGENCY PHYSICIAN Emergency Medicine; FAMILY PHYSICIAN Family Medicine
DX: J69.0 Pneumonitis due to inhalation of food and vomit (principal); E03.9 Hypothyroidism, unspecified; H35.30 Unspecified macular degeneration; J40 Bronchitis, not specified as acute or chronic; E11.9 Type 2 diabetes mellitus without complications; M41.9 Scoliosis, unspecified; F03.90 Unspecified dementia, unspecified severity, without behavioral disturbance, psychotic disturbance, mood disturbance, and anxiety; I10 Essential (primary) hypertension; F32.A Depression, unspecified; H40.9 Unspecified glaucoma; K59.09 Other constipation; R09.02 Hypoxemia; K80.20 Calculus of gallbladder without cholecystitis without obstruction; R26.2 Difficulty in walking, not elsewhere classified; R06.89 Other abnormalities of breathing; M54.2 Cervicalgia; Z66 Do not resuscitate; Z96.651 Presence of right artificial knee joint; Z86.73 Personal history of transient ischemic attack (TIA), and cerebral infarction without residual deficits; Z87.442 Personal history of urinary calculi; Z82.49 Family history of ischemic heart disease and other diseases of the circulatory system; Z82.3 Family history of stroke; Z90.710 Acquired absence of both cervix and uterus; Z88.5 Allergy status to narcotic agent; Z88.0 Allergy status to penicillin; Z88.1 Allergy status to other antibiotic agents; Z91.012 Allergy to eggs; Z79.890 Hormone replacement therapy
CPT/HCPCS: 71045; 71046; 80048; 80053; 82962; 83880; 84145; 85025; 85027; 87070; 87502; 92526; 92610; 94640; 97163; 99285

== ENCOUNTER → 2024-11-02 09:28 | Outpatient (REF) | payer OTHER, SELFPAY ==
[2024-11-02 11:27] LABS: Free T4 1.39 ng/dl (0.78-2.19)
[2024-11-02 11:43] LABS: TSH 0.23 uIU/ml (0.47-4.68)
== END ==
LOC: OLABWHC 09:28
PROVIDERS: ATTENDING PHYSICIAN Family Medicine
DX: E03.9 Hypothyroidism, unspecified (principal)
CPT/HCPCS: 36415; 84439; 84443